=== PATIENT | male | born 1980 ===

== ENCOUNTER 2017-02-02 20:24 | Emergency (ER) | payer OTHER ==
--- NOTE | 2017-02-02 21:33 | C.PDOC ---
History Of Present Illness 36 year old male presents to the ED c/o of chest pain especially on his left side that worsens with movement that has been going on for approximately 4 days. Patient denies sweats, fever, cough, recent fall, trauma or injury. Chief Complaint (Nursing): Chest Pain History Per: Patient History/Exam Limitations: no limitations Onset/Duration Of Symptoms: Days Current Symptoms Are (Timing): Still Present Severity: Mild Quality: "Pain" Exacerbating Factors: Movement Alleviating Factors: None Recent travel outside of the [place]: No Additional History Per: Patient Past Medical History Reviewed: Historical Data, Nursing Documentation, Vital Signs Vital Signs: Last Vital Signs Temp 97.4 F L 02/02/17 23:22 Pulse 64 02/02/17 23:22 Resp 18 02/02/17 23:22 BP 116/61 02/02/17 23:22 Pulse Ox 98 02/02/17 23:22 - Medical History PMH: No Chronic Diseases Surgical History: No Surg Hx Family History: States: No Known Family Hx - Social History Hx Alcohol Use: No Hx Substance Use: No - Immunization History Hx Tetanus Toxoid Vaccination: No Hx Influenza Vaccination: No Hx Pneumococcal Vaccination: No Review Of Systems Constitutional: Negative for: Fever, Chills, Sweats Cardiovascular: Positive for: Chest Pain. Negative for: Palpitations Respiratory: Negative for: Cough, Shortness of Breath Gastrointestinal: Negative for: Nausea, Vomiting, Abdominal Pain Musculoskeletal: Negative for: Back Pain Neurological: Negative for: Headache Physical Exam - Physical Exam Appears: In Acute Distress (Mild secondary to pain) Skin: Normal Color, Warm, Dry Head: Atraumatic, Normacephalic Oral Mucosa: Moist Neck: Normal ROM, Supple Chest: Symmetrical, Tenderness (Left anterior wall ) Cardiovascular: Rhythm Regular, No Murmur Respiratory: Normal Breath Sounds, No Rales, No Rhonchi, No Wheezing Gastrointestinal/Abdominal: Soft, No Tenderness Extremity: Normal ROM, No Pedal Edema, No Calf Tenderness, No Swelling Neurological/Psych: Oriented x3, Normal Speech, Normal Cognition Gait: Steady ED Course And Treatment - Laboratory Results Result Diagrams: 02/02/17 22:05 02/02/17 22:05 ECG: Interpreted By Me, Viewed By Me ECG Rhythm: Sinus Rhythm ECG Interpretation: No Acute Changes Interpretation Of ECG: NSR, IRRRB, bordrline tracings. Rate From EC O2 Sat by Pulse Oximetry: 99 (On RA) Pulse Ox Interpretation: Normal Medical Decision Making Medical Decision Making: Impression : 36 y/o male c/o CP for the past 4 days. Plan: * EKG ordered * Blood work ordered * Toradol 30 mg IVP given * CXR ordered Disposition Counseled Patient/Family Regarding: Diagnosis - Disposition Referrals: [facility] [Outside] Disposition Time: 00:02 Condition: GOOD Prescriptions: Naproxen 375 mg PO TIDPC #20 tablet Instructions: Chest Wall Pain (ED) Forms: [employer] (Citizen Of [place]) - POA Present On Arrival: None - Clinical Impression Clinical Impression: Chest wall pain - Scribe Statement The provider has reviewed the documentation as recorded by the Scribe Az Shipley All medical record entries made by the Scribe were at my direction and personally dictated by me. I have reviewed the chart and agree that the record accurately reflects my personal performance of the history, physical exam, medical decision making, and the department course for this patient. I have also personally directed, reviewed, and agree with the discharge instructions and disposition.
[2017-02-02 22:09] LABS: BASO # 0.1 K/uL (0.0-0.2); BASO % 0.5 % (0.0-2.0); EOS # 0.3 K/uL (0.0-0.7); EOS % 2.3 % (0.0-4.0); HEMATOCRIT 45.3 % (35.0-51.0); LYMPH # 2.8 K/uL (1.0-4.3); LYMPH % 19.6 % (20.0-40.0); MEAN CELL VOLUME 84.6 fL (80.0-94.0); MEAN CORPUSCULAR HEMOGLOBIN 28.4 pg (27.0-31.0); MEAN CORPUSCULAR HGB CONC 33.6 g/dL (33.0-37.0); MONO # 1.2 K/uL (0.0-0.8); MONO % 8.3 % (0.0-10.0); NRBC % 0.1 % (0.0-2.0); RED CELL DISTRIBUTION WIDTH 13.5 % (11.5-14.5); WHITE BLOOD COUNT 14.3 K/uL (4.8-10.8)
[2017-02-02 22:32] LABS: ALB/GLOB RATIO 1.7 (1.0-2.1); ALKALINE PHOSPHATASE 58 U/L (38-126); ALT/SGPT 42 U/L (21-72); AST/SGOT 33 U/L (17-59); BILIRUBIN,TOTAL 1.5 mg/dL (0.2-1.3); BLOOD UREA NITROGEN 18 mg/dL (9-20); CALCIUM 8.4 mg/dl (8.6-10.4); CARBON DIOXIDE 29 mmol/L (22-30); CHLORIDE 99 mmol/L (98-107); GFR AFRICAN-AMERICAN > 60; GLUCOSE,RANDOM 80 mg/dL (75-110); POTASSIUM 3.7 mmol/L (3.6-5.2); SODIUM 136 mmol/L (132-148); TOTAL PROTEIN 7.3 g/dL (6.3-8.3)
[2017-02-02 23:25] VITALS: BP 116/61; PULSE 64; RESP 18; TEMP 97.4
[2017-02-03 00:06] VITALS: O2SAT 99
--- NOTE | 2017-02-03 08:30 | RAD ---
HISTORY: chest pain COMPARISON: No prior. TECHNIQUE: Chest PA and lateral FINDINGS: LUNGS: No focal infiltrate or effusion. Mild bilateral hilar prominence. PLEURA: No significant pleural effusion identified. No pneumothorax apparent. CARDIOVASCULAR: Normal. OSSEOUS STRUCTURES: No significant abnormalities. VISUALIZED UPPER ABDOMEN: Normal. OTHER FINDINGS: None. IMPRESSION: No active disease.
--- NOTE | 2017-02-03 22:11 | CARD ---
APPROVED REPORT EKG Measurement Heart [id number] VA 140P37 [id number] <Conclusion> Normal sinus rhythm Incomplete right bundle branch block Borderline ECG
== END 2017-02-03 00:12 | disposition home or self-care (01) ==
LOC: C.ER 20:24
DX: R07.89 Other chest pain (principal)
CPT/HCPCS: 71020; 80053; 84484; 85025; 85378; 93005; 96374; 99285; J1885

== ENCOUNTER 2017-09-20 23:38 | Emergency (ER) | payer SELFPAY ==
[2017-09-20 23:46] VITALS: O2SAT 99
--- NOTE | 2017-09-21 00:50 | C.PDOC ---
History Of Present Illness patient presents with burning sensation in his mid epigastic area radiating into his chest. worse after food. No f/c/n/v/. No chest pain. Time Seen by Provider: 09/21/17 00:49 Chief Complaint (Nursing): Abdominal Pain History Per: Patient History/Exam Limitations: no limitations Onset/Duration Of Symptoms: Days Current Symptoms Are (Timing): Still Present Context: Food Severity: Moderate Pain Scale Rating Of: 4 Location Of Pain/Discomfort: Epigastric Radiation Of Pain To:: None Quality Of Discomfort: Burning Associated Symptoms: denies: Fever, Chills, Nausea, Vomiting Exacerbating Factors: Food Alleviating Factors: None Last Bowel Movement: Yesterday Past Medical History Reviewed: Historical Data, Nursing Documentation, Vital Signs Vital Signs: Last Vital Signs Temp 97.9 F 09/21/17 04:57 Pulse 55 L 09/21/17 04:57 Resp 16 09/21/17 04:57 BP 116/68 09/21/17 04:57 Pulse Ox 99 09/21/17 04:57 Family History: States: No Known Family Hx - Social History Hx Alcohol Use: No Hx Substance Use: No - Immunization History Hx Tetanus Toxoid Vaccination: No Hx Influenza Vaccination: No Hx Pneumococcal Vaccination: No Review Of Systems Constitutional: Negative for: Fever, Chills Eyes: Negative for: Vision Change ENT: Negative for: Throat Pain Cardiovascular: Negative for: Chest Pain Respiratory: Negative for: Shortness of Breath Gastrointestinal: Positive for: Abdominal Pain. Negative for: Nausea, Vomiting Musculoskeletal: Negative for: Back Pain Skin: Negative for: Rash Neurological: Negative for: Weakness Psych: Negative for: Anxiety Physical Exam - Physical Exam Appears: Non-toxic, No Acute Distress Skin: Warm, Dry Oral Mucosa: Moist Neck: Supple Chest: Symmetrical Cardiovascular: Rhythm Regular Respiratory: No Rales, No Rhonchi, No Wheezing Gastrointestinal/Abdominal: Soft, Tenderness (mid epigastric), No Distention, No Guarding Male Genital: Normal Inspection Extremity: Normal ROM Neurological/Psych: Oriented x3 Gait: Steady ED Course And Treatment - Laboratory Results Result Diagrams: 09/21/17 01:27 09/21/17 01:27 ECG: Interpreted By Me, Viewed By Me ECG Rhythm: Sinus Rhythm (55), Nonspecific Changes O2 Sat by Pulse Oximetry: 99 Pulse Ox Interpretation: Normal Disposition Counseled Patient/Family Regarding: Studies Performed, Diagnosis - Disposition Referrals: Shantel Dubose MD [Primary Care Provider] - Disposition: HOME/ ROUTINE Disposition Time: 00:49 Condition: FAIR Additional Instructions: Please return if symptoms recur Prescriptions: Azithromycin [Zithromax Tri-Truman] 500 mg PO DAILY #3 tablet Pantoprazole Sodium [Protonix] 20 mg PO DAILY #15 ect Instructions: Acid Reflux (GERD), Adolescent (DC), Pneumonia, Adult (DC) Forms: [employer] (Frisian) - Clinical Impression Clinical Impression: GERD (gastroesophageal reflux disease), Pneumonia
[2017-09-21] MEDS ORDERED: Sodium Chloride 0.9% 1,000 ML IV ONE (01:01)
[2017-09-21] MEDS ORDERED: Sodium Chloride 0.9% 1,000 ML ONE (01:25)
[2017-09-21 01:30] LABS: BASO # 0.1 K/uL (0.0-0.2); BASO % 1.1 % (0.0-2.0); EOS # 0.3 K/uL (0.0-0.7); EOS % 2.8 % (0.0-4.0); HEMOGLOBIN 14.4 g/dL (12.0-18.0); LYMPH # 3.3 K/uL (1.0-4.3); LYMPH % 27.1 % (20.0-40.0); MEAN CELL VOLUME 83.5 fL (80.0-94.0); MEAN CORPUSCULAR HEMOGLOBIN 27.9 pg (27.0-31.0); MEAN CORPUSCULAR HGB CONC 33.4 g/dL (33.0-37.0); MEAN PLATELET VOLUME 9.3 fL (7.2-11.7); MONO % 8.7 % (0.0-10.0); NEUT # 7.3 K/uL (1.8-7.0); NEUT % 60.3 % (50.0-75.0); RBC 5.18 Mil/uL (4.40-5.90); RED CELL DISTRIBUTION WIDTH 13.8 % (11.5-14.5); WHITE BLOOD COUNT 12.1 K/uL (4.8-10.8)
[2017-09-21 01:44] LABS: ALB/GLOB RATIO 1.5 (1.0-2.1); ALBUMIN 4.3 g/dL (3.5-5.0); ALT/SGPT 30 U/L (21-72); AST/SGOT 20 U/L (17-59); BLOOD UREA NITROGEN 15 mg/dL (9-20); CALCIUM 8.2 mg/dl (8.6-10.4); GFR AFRICAN-AMERICAN > 60; GFR NON-AFRICAN AMERICAN > 60; LIPASE 60 U/L (23-300); SPERM URINE RARE /hpf; SQUAMOUS EPITHIAL < 1 /hpf (0-5); URINE BACTERIA OCC (<OCC); URINE BILIRUBIN NEGATIVE (NEGATIVE); URINE BLOOD NEGATIVE (NEGATIVE); URINE CLARITY Clear (Clear); URINE COLOR Yellow (YELLOW); URINE GLUCOSE (UA) NORMAL (Normal); URINE LEUKOCYTE ESTERASE NEG Leu/uL (Negative); URINE PROTEIN NEGATIVE (NEGATIVE); URINE UROBILINOGEN NORMAL mg/dL (0.2-1.0)
[2017-09-21] MEDS ORDERED: Iodixanol 320 mg/ml 150 ml Bottle IV ONE (02:39)
[2017-09-21 04:58] VITALS: RESP 16
[2017-09-21] MEDS ORDERED: Piperacillin/Tazobact 3.375 gm 100 ML IVPB STA (05:03)
[2017-09-21] MEDS ORDERED: Piperacillin/Tazobact 3.375 gm 100 ML IVPB ONE (05:18)
[2017-09-21 06:08] VITALS: BP 111/65; PULSE 56; TEMP 97.8
--- NOTE | 2017-09-21 11:20 | CT ---
PROCEDURE: CT Abdomen and Pelvis with contrast HISTORY: abd pain, hx of gastritis COMPARISON: None. TECHNIQUE: Contrast dose: 100 mL Visipaque 320 Radiation dose: Total exam DLP = 330.3 mGy-cm. This CT exam was performed using one or more of the following dose reduction techniques: Automated exposure control, adjustment of the mA and/or kV according to patient size, and/or use of iterative reconstruction technique. FINDINGS: LOWER THORAX: Left lower lobe infiltrate. Small left pleural effusion. LIVER: Unremarkable. No gross lesion or ductal dilatation. GALLBLADDER AND BILE DUCTS: Distended gallbladder with mild gallbladder wall edema. PANCREAS: Unremarkable. No gross lesion or ductal dilatation. SPLEEN: Unremarkable. ADRENALS: Unremarkable. No mass. KIDNEYS AND URETERS: Unremarkable. No hydronephrosis. No solid mass. VASCULATURE: Unremarkable. No aortic aneurysm. BOWEL: Retained colonic stool. No obstruction. No gross mural thickening. APPENDIX: Normal appendix. PERITONEUM: Small fat containing umbilical hernia. No free fluid. No free air. LYMPH NODES: Unremarkable. No enlarged lymph nodes. BLADDER: Unremarkable. REPRODUCTIVE: Unremarkable. BONES: No acute fracture. OTHER FINDINGS: None. IMPRESSION: Left lower lobe infiltrate with small parapneumonic effusion.
--- NOTE | 2017-09-22 12:56 | CARD ---
APPROVED REPORT EKG Measurement Heart [id number] MI 134P5 [id number] <Conclusion> Sinus bradycardia Otherwise normal ECG
== END 2017-09-21 06:10 | disposition home or self-care (01) ==
LOC: C.ER 23:38 → SUPCPDRO 23:38 → C.ER 09-21 06:10
DX: K21.9 Gastro-esophageal reflux disease without esophagitis (principal); J18.9 Pneumonia, unspecified organism
CPT/HCPCS: 74177; 80053; 81001; 83690; 85025; 93005; 96361; 96365; 96375; 99285; C9113; J1885; J2543; J7030; Q9967

== ENCOUNTER 2017-09-23 20:49 | Emergency (ER) | payer SELFPAY ==
[2017-09-23 20:57] VITALS: O2SAT 99
[2017-09-23] MEDS ORDERED: Sodium Chloride 0.9% 1,000 ML IV ONE (21:19)
[2017-09-23 21:49] LABS: BASO # 0.1 K/uL (0.0-0.2); BASO % 0.9 % (0.0-2.0); EOS # 0.2 K/uL (0.0-0.7); EOS % 1.5 % (0.0-4.0); HEMOGLOBIN 14.3 g/dL (12.0-18.0); LYMPH # 2.6 K/uL (1.0-4.3); MEAN CELL VOLUME 83.2 fL (80.0-94.0); MEAN CORPUSCULAR HEMOGLOBIN 28.5 pg (27.0-31.0); MEAN CORPUSCULAR HGB CONC 34.3 g/dL (33.0-37.0); MEAN PLATELET VOLUME 9.1 fL (7.2-11.7); MONO % 7.3 % (0.0-10.0); NEUT # 9.2 K/uL (1.8-7.0); NEUT % 70.3 % (50.0-75.0); RBC 5.02 Mil/uL (4.40-5.90); RED CELL DISTRIBUTION WIDTH 13.6 % (11.5-14.5); WHITE BLOOD COUNT 13.1 K/uL (4.8-10.8)
[2017-09-23] MEDS ORDERED: Sodium Chloride 0.9% 1,000 ML ONE (21:50)
[2017-09-23 22:01] LABS: ALB/GLOB RATIO 1.6 (1.0-2.1); ALBUMIN 4.2 g/dL (3.5-5.0); ALT/SGPT 31 U/L (21-72); AST/SGOT 21 U/L (17-59); BLOOD UREA NITROGEN 14 mg/dL (9-20); CALCIUM 8.2 mg/dl (8.6-10.4); GFR AFRICAN-AMERICAN > 60; GFR NON-AFRICAN AMERICAN > 60
--- NOTE | 2017-09-23 22:47 | C.PDOC ---
History Of Present Illness 36 year old male presents to the ED c/o pain to her bilateral parasternal areas and epigastric tenderness. Patient was evaluated on 09/[address] scan abd which showed left lower lobe pneumonia. Patient reports he was not instructed to take NSAIDs for pain, went to work today. 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 Patient states pain worsens with coughing and sneezing. Time Seen by Provider: 09/23/17 21:00 Chief Complaint (Nursing): Abdominal Pain History Per: Patient History/Exam Limitations: no limitations Onset/Duration Of Symptoms: Days Current Symptoms Are (Timing): Still Present Location Of Pain/Discomfort: Diffuse Radiation Of Pain To:: Chest Quality Of Discomfort: "Pain" Exacerbating Factors: None Alleviating Factors: None Recent travel outside of the [place]: No Additional History Per: Patient Past Medical History Reviewed: Historical Data, Nursing Documentation, Vital Signs Vital Signs: Last Vital Signs Temp 98.6 F 09/23/17 23:18 Pulse 60 09/23/17 23:18 Resp 16 09/23/17 23:18 BP 143/76 09/23/17 23:18 Pulse Ox 99 09/24/17 01:00 - Medical History PMH: No Chronic Diseases Surgical History: No Surg Hx Family History: States: No Known Family Hx - Social History Hx Tobacco Use: No Hx Alcohol Use: No Hx Substance Use: No - Immunization History Hx Tetanus Toxoid Vaccination: No Hx Influenza Vaccination: No Hx Pneumococcal Vaccination: No Review Of Systems Constitutional: Negative for: Fever, Chills Cardiovascular: Positive for: Chest Pain. Negative for: Palpitations Respiratory: Negative for: Cough, Shortness of Breath Gastrointestinal: Positive for: Abdominal Pain. Negative for: Nausea, Vomiting Musculoskeletal: Negative for: Back Pain Physical Exam - Physical Exam Appears: Non-toxic, No Acute Distress Skin: Normal Color, Warm, Dry Head: Atraumatic, Normacephalic Eye(s): bilateral: Normal Inspection Oral Mucosa: Moist Neck: Normal ROM, Supple Chest: Symmetrical, Tenderness (B/L parasternal) Cardiovascular: Rhythm Regular Respiratory: Normal Breath Sounds, No Rales, No Rhonchi, No Wheezing Gastrointestinal/Abdominal: Soft, No Tenderness, No Guarding, No Rebound Extremity: Normal ROM, No Tenderness, No Swelling Neurological/Psych: Oriented x3, Normal Speech Gait: Steady ED Course And Treatment - Laboratory Results Result Diagrams: 09/23/17 21:46 09/23/17 21:46 O2 Sat by Pulse Oximetry: 99 (ON RA) Pulse Ox Interpretation: Normal Medical Decision Making Medical Decision Making: PNA: mild persistent LLL PNA (dx 09/20/17) resolving nicely- clear breath sounds b/l no cough tomorrow 09/24 should be last dose of Azithromycin PO Costochondritis: digitally reproducable b/l parasternal discomfort improved with NAIDS and ice therapy educated. Epigastric discomfort Seems more xyphoid and NOT GB though called back for elective GB US, not acute issue today may f/u as opt. Disposition Doctor Will See Patient In The: Office Counseled Patient/Family Regarding: Studies Performed, Diagnosis - Disposition Referrals: [employer] [facility] [employer] [facility] [Outside] [facility] Disposition: HOME/ ROUTINE Disposition Time: 23:00 Condition: GOOD Additional Instructions: Pneumonia: Sigue Azithromycina 250 mg diario Manana 09/24 debe ser el ultimo nadja de los antibioticos Ud tiene que descansar gracia semana mas- para sanar mejor Costochondritis: Dolor del pared del pecho bolsa de hielo 1/2 hora por hora, nada caliente Ibuprofeno/Advil 400-600 mg cada 6 horas kathleen necessario para dolor Daniel gracia semana no levanta nada pesada por gracia semana Vesicula: Puede presentar ELETIVAMENTE en 2-3 semanas para hacer examen de ultrasonido Sigue en la [facility] (gratis) [place] para hacer yvette. Instructions: Pneumonia in Adults, Costochondritis Forms: [facility] [employer] (German), Work Excuse Print Language: JAPANESE - Clinical Impression Clinical Impression: Chest wall pain, Pneumonia - Scribe Statement The provider has reviewed the documentation as recorded by the Scribe Az Shipley All medical record entries made by the Scribe were at my direction and personally dictated by me. I have reviewed the chart and agree that the record accurately reflects my personal performance of the history, physical exam, medical decision making, and the department course for this patient. I have also personally directed, reviewed, and agree with the discharge instructions and disposition.
[2017-09-23 23:19] VITALS: BP 143/76; PULSE 60; RESP 16; TEMP 98.6
--- NOTE | 2017-09-24 08:29 | RAD ---
PROCEDURE: Radiographs of the chest and abdomen (obstructive series) HISTORY: Epigastric and chest pain COMPARISON: Comparison chest dated 02/02/2017 theNo prior. TECHNIQUE: AP radiograph of the chest, with upright and supine radiographs of the abdomen. FINDINGS: CHEST: Lungs: Patchy left lower lobe infiltrate with blunting left CP angle likely due to small residual effusion as well. . . Cardiovascular: Normal size heart. No pulmonary vascular congestion. Pleura: No pleural fluid. No pneumothorax. Other findings: None. ABDOMEN AND PELVIS: Bowel: Unremarkable bowel gas pattern. No evidence of mechanical obstruction. Free air: None. Bones: Small bone island within the left acetabulum unchanged. . There is very mild levoscoliosis centered at the lower thoracic region Other findings: None. IMPRESSION: Left lower lobe infiltrate and small left effusion.
--- NOTE | 2017-09-26 16:00 | CARD ---
APPROVED REPORT EKG Measurement Heart [id number] MA 126P21 [id number] <Conclusion> Sinus bradycardia Otherwise normal ECG
== END 2017-09-23 23:19 | disposition home or self-care (01) ==
LOC: C.ER 20:49
DX: J18.9 Pneumonia, unspecified organism (principal); R07.89 Other chest pain
CPT/HCPCS: 74022; 80053; 84484; 85025; 93005; 96361; 96374; 99284; J1885; J7030

== ENCOUNTER 2017-10-01 06:33 | Inpatient (IN) | payer MEDICAID ==
--- NOTE | 2017-10-01 07:27 | C.PDOC ---
History Of Present Illness 36 y/o male presents to ed with ruq and epigastric pain since last night that started after eating a liz. no associated fever, chills, nausea, vomiting or diarrhea. pt took advil with no relief. pt has been seen in ed 2 time recents for ab pain, now taking protonix, and finished a course of zithromax for a left lower lobe infiltrate. pt denies cp and sob. Time Seen by Provider: 10/01/17 07:00 Chief Complaint (Nursing): Abdominal Pain History Per: Patient History/Exam Limitations: no limitations Onset/Duration Of Symptoms: Days (1) Current Symptoms Are (Timing): Still Present Context: Food Severity: Moderate Location Of Pain/Discomfort: RUQ, Epigastric Radiation Of Pain To:: None Quality Of Discomfort: "Pain" Associated Symptoms: denies: Fever, Chills, Nausea, Vomiting, Diarrhea, Chest Pain, Urinary Symptoms Alleviating Factors: None Past Medical History Reviewed: Historical Data, Nursing Documentation, Vital Signs Vital Signs: Last Vital Signs Temp 99 F 10/01/17 09:01 Pulse 63 10/01/17 06:41 Resp 16 10/01/17 06:41 BP 152/80 H 10/01/17 06:41 Pulse Ox 99 10/01/17 08:47 - Medical History PMH: Pneumonia Surgical History: No Surg Hx Family History: States: Unknown Family Hx - Social History Hx Tobacco Use: No Hx Alcohol Use: No Hx Substance Use: No - Immunization History Hx Tetanus Toxoid Vaccination: No Hx Influenza Vaccination: No Hx Pneumococcal Vaccination: No Review Of Systems Constitutional: Negative for: Fever, Chills Cardiovascular: Negative for: Chest Pain Respiratory: Negative for: Cough, Shortness of Breath Gastrointestinal: Positive for: Abdominal Pain (ruq and epigadtric area). Negative for: Nausea, Vomiting Genitourinary: Negative for: Dysuria, Frequency Skin: Negative for: Rash Neurological: Negative for: Weakness, Numbness Physical Exam - Physical Exam Appears: Non-toxic, No Acute Distress Skin: Warm, Dry Head: Atraumatic, Normacephalic Eye(s): bilateral: Normal Inspection Neck: Supple Respiratory: No Decreased Breath Sounds, No Wheezing Gastrointestinal/Abdominal: Bowel Sounds, Soft, Tenderness (epigastric and right upper quadrant), No Distention, No Guarding, No Rebound Extremity: Normal ROM, No Tenderness, No Swelling Neurological/Psych: Oriented x3, Normal Speech, Normal Cognition ED Course And Treatment - Laboratory Results Result Diagrams: 10/01/17 07:48 10/01/17 07:48 O2 Sat by Pulse Oximetry: 99 Medical Decision Making Medical Decision Making: pt with repeat ruq/epigastric pain; per ct done early september, recommended for pt to get ruq sono; labs, pepcid, sono ordered. 0847 surg resident made aware Disposition Discussed With DrChandler: Christina Babb Doctor Will See Patient In The: Hospital - Disposition Disposition: HOSPITALIZED Disposition Time: 10:53 Condition: STABLE Forms: [facility] (British) - Clinical Impression Clinical Impression: Pneumonia, Cholecystitis
[2017-10-01 07:58] LABS: BASO # 0.1 K/uL (0.0-0.2); BASO % 0.3 % (0.0-2.0); EOS % 0.1 % (0.0-4.0); HEMOGLOBIN 14.8 g/dL (12.0-18.0); LYMPH # 0.8 K/uL (1.0-4.3); LYMPH % 3.7 % (20.0-40.0); MEAN CELL VOLUME 83.4 fL (80.0-94.0); MEAN CORPUSCULAR HEMOGLOBIN 28.3 pg (27.0-31.0); MEAN PLATELET VOLUME 9.6 fL (7.2-11.7); MONO # 0.8 K/uL (0.0-0.8); MONO % 3.6 % (0.0-10.0); NEUT # 19.1 K/uL (1.8-7.0); NEUT % 92.3 % (50.0-75.0); NRBC % 0.1 % (0.0-2.0); PLATELET COUNT 273 K/uL (130-400); RBC 5.23 Mil/uL (4.40-5.90); RED CELL DISTRIBUTION WIDTH 13.5 % (11.5-14.5)
[2017-10-01 08:01] LABS: WHITE BLOOD COUNT 20.7 K/uL (4.8-10.8)
[2017-10-01 08:15] LABS: ALB/GLOB RATIO 1.5 (1.0-2.1); ALBUMIN 4.9 g/dL (3.5-5.0); ALT/SGPT 31 U/L (21-72); AST/SGOT 18 U/L (17-59); BLOOD UREA NITROGEN 12 mg/dL (9-20); CALCIUM 9.2 mg/dl (8.6-10.4); GFR AFRICAN-AMERICAN > 60; GFR NON-AFRICAN AMERICAN > 60; LIPASE 25 U/L (23-300)
[2017-10-01] MEDS ORDERED: cefOXitin IV 2 gm in Dextrose 2 GM/50 ML BAG IVPB ONE (08:20)
[2017-10-01 08:28] LABS: ANISOCYTOSIS SLIGHT; BASOPHIL 1 % (0-2); LARGE PLATELETS PRESENT; LYMPHOCYTE 4 % (20-40); MONOCYTE 3 % (0-10); NEUTROPHIL 92 % (50-75); PLATELET ESTIMATE NORMAL (NORMAL); TOTAL CELLS COUNTED 100; TOXIC GRANULATION PRESENT
[2017-10-01] MEDS ORDERED: Sodium Chloride 0.9% 1,000 ML IV SCH (09:00)
--- NOTE | 2017-10-01 10:47 | US ---
Right upper quadrant abdominal ultrasound History: Abdominal pain. Comparison: None available. Technique: Real-time sonography was performed through the right upper quadrant of the abdomen. Findings: Liver: 17.2 centimeters in length. Normal echogenicity. Gallbladder: Cholelithiasis and sludge in the gallbladder. Calculi measure up to 1.2 centimeters. Gallbladder wall thickening up to 4 millimeters. Associated gallbladder wall edema. Negative sonographic Murray's sign. Common bile duct measures 5.7 millimeters, prominent. Pancreas not well visualized. Visualized aorta and IVC are preserved. Right kidney: 11.3 x 4.4 x 5.3 centimeters. No calculi or hydronephrosis. Impression: 1. Cholelithiasis and sludge in the gallbladder with associated gallbladder wall thickening measuring up to 4 millimeters as well as associated gallbladder wall edema. These findings may represent an underlying cholecystitis. Clinical correlation. 2. Prominent common bile duct measuring up 5.7 millimeters. Clinical correlation. 3. Pancreas not well visualized.
[2017-10-01] MEDS ORDERED: Cefepime IV 1 gm in Dextrose 1 GM/50 ML BAG IVPB STA (10:48)
[2017-10-01] MEDS ORDERED: Azithromycin 500 MG in Sodium Chloride 0.9% 250 ML IVPB STA (10:49)
--- NOTE | 2017-10-01 10:52 | RAD ---
Chest x-ray two views History: Infiltrate. Comparison: CT abdomen and pelvis dated 09/21/2017 Findings: Persistent dense rounded consolidative opacity at the left lung base concerning for underlying infiltrate. Adjacent small left pleural effusion. Post treatment interval followup is recommended to exclude underlying lesion. Clinical correlation. Heart size within normal limits. Impression: Persistent dense rounded consolidative opacity at the left lung base concerning for underlying infiltrate. Adjacent small left pleural effusion. Post treatment interval followup is recommended to exclude underlying lesion. Clinical correlation.
[2017-10-01 11:33] LABS: INR 1.2; PROTHROMBIN TIME 12.7 SECONDS (9.7-12.2)
--- NOTE | 2017-10-01 12:49 | CP.PCM.HP ---
History of Present Illness - History of Present Illness History of Present Illness: CC: stomach pains HPI: 36 year old male w/ PMHx of pneumonia (09/21/17) presented to ED with 3 week abdominal pain, increasing in intensity. Patient states it is epigastric pain radiating to subxyphoid area and lower right abdominal region. Last night (09/30/17) it increased in intensity (from 6 to 9) and despite taking 2, 200mg Advil he had no relief of pain. Patient is unable take deep breaths secondary to the pain in his abdominal region. Patient denies nausea, vomiting, leg pain/ swelling, sore throat, recent illness. Patient was recently in ED on 09/21 with similar GI symptoms (given pantoprazole 20 mg PO daily) and was found to have a distended gallbalder w/ mild gallbladder wall edema ( patient was informed of results after D/C and was informed to f/u w/ U/S) & an infiltrate on L lung on CT that was treated with azithromycin 3 days. Patient returned to ED on 09/23 for same GI complaints. XRAY obstructive series was performed confirming left lobar infiltrate. Patient denies recent travel, half-way visit. Patient denies vision changes , changes in hearing, chest pain, leg pain, calf tenderness, trouble voiding, changes in BM. Patient admits to occasional shortness of breath and chest pain. 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 absent: Chills, Fever, Increased Appetite - EENT Eyes: absent: Blurred Vision, Change in Vision, Itchy Eyes Ears: absent: Ear Pain, Abnormal Hearing, Dizziness Nose/Mouth/Throat: absent: Nasal Trauma, Sinus Pain, Sinus Pressure, Facial Pain - Cardiovascular Cardiovascular: absent: Irregular Heart Rhythm, Pain Radiating to Arm/Neck/Jaw, Leg Edema, Lightheadedness - Respiratory Respiratory: absent: Cough, Dyspnea, Wheezing - Gastrointestinal Gastrointestinal: Abdominal Pain, Early Satiety. absent: Change in Bowel Habits , Constipation, Dysphagia - Genitourinary Genitourinary: absent: Dysuria, Hematuria, Pyuria, Urinary Frequency, Urinary Hesitance - Integumentary Integumentary: absent: Acne, Non-Healing Lesions, Striae, Swelling - Neurological Neurological: absent: Abnormal Gait, Abnormal Hearing, Abnormal Movements, Behavioral Changes, Headaches, Syncope, Tremor - Endocrine Endocrine: Palpitations. absent: Polydipsia, Polyphagia, Polyuria - Hematologic/Lymphatic Hematologic: absent: Easy Bleeding, Easy Bruising Past Patient History - Infectious Disease Hx of Infectious Diseases: None - Tetanus Immunizations Tetanus Immunization: Unknown - Past Medical History & Family History Past Medical History?: Yes - Past Social History Smoking Status: Light Smoker < 10 Cigarettes Daily Chewing Tobacco Use: No Cigar Use: No Alcohol: None Drugs: Denies - PULMONARY Hx Pneumonia: Yes - PSYCHIATRIC Hx Substance Use: No - SURGICAL HISTORY Hx Surgeries: No - ANESTHESIA Hx Anesthesia: No Meds Allergies/Adverse Reactions: Allergies Allergy/AdvReac Type Severity Reaction Status Date / Time No Known Allergies Allergy Verified 09/23/17 20:58 Physical Exam - Constitutional Appears: Non-toxic, No Acute Distress - Head Exam Head Exam: ATRAUMATIC, NORMAL INSPECTION, NORMOCEPHALIC - ENT Exam ENT Exam: Mucous Membranes Moist, Normal Exam - Neck Exam Neck exam: Positive for: Normal Inspection. Negative for: Thyromegaly - Respiratory Exam Respiratory Exam: Clear to Auscultation Bilateral, NORMAL BREATHING PATTERN. absent: Rhonchi, Wheezes, Respiratory Distress - Cardiovascular Exam Cardiovascular Exam: +S1, +S2. absent: Irregular Rhythm, Systolic Murmur - GI/Abdominal Exam GI & Abdominal Exam: Guarding, Normal Bowel Sounds, Soft. absent: Diminished Bowel Sounds, Distended, Firm Additional comments: Patient had pain on palpation of abdominal region. Patient was guarding from palpation and unable to perform laguna exam/ check for hepatomegaly/ splenomegaly. - Extremities Exam Extremities exam: Positive for: normal inspection, pedal pulses present. Negative for: calf tenderness, joint swelling, pedal edema - Back Exam Back exam: NORMAL INSPECTION. absent: CVA tenderness (L), CVA tenderness (R) - Neurological Exam Neurological exam: Alert, CN II-XII Intact, Normal Gait, Oriented x3 - Psychiatric Exam Psychiatric exam: Normal Affect, Normal Mood - Skin Skin Exam: Dry, Intact, Normal Color, Warm Results - Vital Signs Recent Vital Signs: Last Vital Signs Temp 98 F 10/01/17 11:51 Pulse 76 10/01/17 11:51 Resp 18 10/01/17 11:51 BP 126/73 10/01/17 11:51 Pulse Ox 98 10/01/17 11:51 - Labs Result Diagrams: 10/01/17 07:48 10/01/17 16:44 Labs: Laboratory Results - last 24 hr 10/01/17 10/01/17 10/01/17 07:48 07:48 11:12 WBC 20.7 H D RBC 5.23 Hgb 14.8 Hct 43.6 MCV 83.4 MCH 28.3 MCHC 34.0 RDW 13.5 Plt Count 273 MPV 9.6 Neut % (Auto) 92.3 H Lymph % (Auto) 3.7 L [place] % (Auto) 3.6 Eos % (Auto) 0.1 Baso % (Auto) 0.3 Neut # (Auto) 19.1 H Lymph # (Auto) 0.8 L [place] # (Auto) 0.8 Eos # (Auto) 0.0 Baso # (Auto) 0.1 Neutrophils % (Manual) 92 H Lymphocytes % (Manual) 4 L Monocytes % (Manual) 3 Basophils % (Manual) 1 Toxic Granulation Present Platelet Estimate Normal Large Platelets Present Anisocytosis (manual) Slight PT 12.7 H INR 1.2 APTT 38 H Sodium 139 Potassium 4.6 Chloride 99 Carbon Dioxide 27 Anion Gap 17 BUN 12 Creatinine 0.7 L Est GFR ( Amer) > 60 Est GFR (Non-Af Amer) > 60 Random Glucose 130 H Calcium 9.2 Total Bilirubin 1.8 H AST 18 ALT 31 Alkaline Phosphatase 86 Total Protein 8.1 Albumin 4.9 Globulin 3.2 Albumin/Globulin Ratio 1.5 Lipase 25 Assessment & Plan - Assessment and Plan (Free Text) Assessment: 36 year old male presents to ED w/ 3 weeks of abdominal pain: 1) Acute Cholecystits 10/01: - Moxifloxacin 400 mg Q24H - Flagyl 500 mg IV Q8H - Dr. Rodriguez surgery consulted - EKG, possible RBBB, F/u ECHO - Toradol 15 mg Q6H PRN for moderate pain - Toradol 30 mg Q6H PRN for severe pain - Zofran 4mg IVQ6 H PRN 2) LLL Pneumonia (CAP) w/ failed outpatient treatment 10/01: - CT shows infiltrate, likely resolved, no clinical symptoms - F/u blood cultures from 10/01 - F/u urine cultures from 10/01 - F/u urine leginella Ag - F/u urine strep Pneumonia Ag - F/u mycoplasma IgG & IgM - F/u ID Dr. Phillips recs 3) Prophylasis 10/01: - DVT risk score of 1 (possible surgery pending) - SCDs - Protonix 40 mg IV X 1day - NS @ 102 ml/ hr - NPO for now until hear from surgery - Florastor 250mg BID
[2017-10-01] MEDS ORDERED: Moxifloxacin IV 400mg/250ml NS 400 MG/250 ML BAG IVPB SCH ×2 (13:00→15:00)
--- NOTE | 2017-10-01 14:09 | CT ---
CT chest History: Left lower lobe pneumonia. Comparison: X-ray dated 10/01/2017 Technique: Multiple contiguous axial images were performed through the chest without the use of intravenous contrast. Subsequently, sagittal and coronal reformatted images were obtained. This CT exam was performed using one or more of the following dose reduction techniques: Automated exposure control, adjustment of the mA and/or kV according to patient size, and/or use of iterative reconstruction technique. Findings: Right lung: Apical pleural thickening. Mild right basilar atelectasis. Left lung: Apical pleural thickening. Mild consolidative changes within the lingula. Dense focal consolidative opacification seen within the left lower lobe measuring 7.5 x 2.3 centimeters with adjacent small left pleural effusion. This may represent underlying infiltrate. Posttreatment interval followup would be helpful to ensure resolution and exclude underlying lesion. Trachea thru central airways are patent. Bilateral gynecomastia. No significant axillary adenopathy. Heterogeneity of the thyroid. Prevascular lymph node measures 1.5 centimeters. Precarinal lymph node measures 1.3 centimeters. Distended gallbladder with associated wall thickening. Please see separate report for evaluation of the gallbladder ultrasound. These findings may be concerning for possible cholecystitis. Clinical correlation. Impression: 1. Dense focal consolidative opacification seen within the left lower lobe measuring 7.5 x 2.3 centimeters with adjacent small left pleural effusion. This may represent underlying infiltrate. Posttreatment interval followup would be helpful to ensure resolution and exclude underlying lesion. Mild consolidative changes within the lingula. 2. Prevascular lymph node measures 1.5 centimeters. Precarinal lymph node measures 1.3 centimeters. 3. Distended gallbladder with associated wall thickening. Please see separate report for evaluation of the gallbladder ultrasound. These findings may be concerning for possible cholecystitis. Clinical correlation.
[2017-10-01] MEDS: metroNIDAZOLE IV 500 mg/100 ml 500 MG/100 ML BAG IVPB SCH ×2 (14:37→21:19)
[2017-10-01] MEDS: Sodium Chloride 0.9% 1,000 ML IV SCH ×2 (14:37→23:01)
[2017-10-01 17:00] LABS: URINE BILIRUBIN NEGATIVE (NEGATIVE); URINE BLOOD 1+ (NEGATIVE); URINE CLARITY Clear (Clear); URINE COLOR Yellow (YELLOW); URINE GLUCOSE (UA) NORMAL (Normal); URINE LEUKOCYTE ESTERASE NEG Leu/uL (Negative); URINE PROTEIN NEGATIVE (NEGATIVE); URINE UROBILINOGEN NORMAL mg/dL (0.2-1.0)
[2017-10-01 17:01] LABS: ALB/GLOB RATIO 1.5 (1.0-2.1); ALBUMIN 4.2 g/dL (3.5-5.0); ALT/SGPT 25 U/L (21-72); AST/SGOT 15 U/L (17-59); BLOOD UREA NITROGEN 7 mg/dL (9-20); CALCIUM 8.9 mg/dl (8.6-10.4); GFR AFRICAN-AMERICAN > 60; GFR NON-AFRICAN AMERICAN > 60
[2017-10-01 17:39] LABS: LEGIONELLA AG URINE NEGATIVE (NEGATIVE)
--- NOTE | 2017-10-01 18:08 | CP.PCM.CON ---
<Tam Bey - Last Filed: 10/01/17 18:02> History of Present Illness - History of Present Illness History of Present Illness: 36M presenting to the ED with constant, epigastric pain radiating to the right side. This pain has been ongoing, but worse the past few weeks. He was recently admitted last week for similar symptoms and discharged with pepcid and antibiotics for pneumonia. Today his symptoms have worsened and no medications are helping with the pain. He denies and fever, chills, nausea, or vomiting. PMH: none PSH: none ALL: NKDA Social: smokes 4-5cigs/day, denies alcohol or drugs Review of Systems - Constitutional Constitutional: Weakness. absent: Chills, Fever, Headache - EENT Eyes: absent: Blurred Vision, Change in Vision Nose/Mouth/Throat: absent: Nasal Congestion, Nasal Discharge - Cardiovascular Cardiovascular: absent: Chest Pain, Dyspnea - Respiratory Respiratory: absent: Cough, Dyspnea - Gastrointestinal Gastrointestinal: Abdominal Pain, Bloating. absent: Change in Bowel Habits, Change in Stool Character, Nausea, Vomiting - Genitourinary Genitourinary: absent: Dysuria, Hematuria - Musculoskeletal Musculoskeletal: absent: Abnormal Gait, Arthralgias - Integumentary Integumentary: absent: Bleeding Lesions, Changing Lesions - Neurological Neurological: absent: Abnormal Hearing, Abnormal Movements - Psychiatric Psychiatric: absent: Depression, Panic Attacks - Endocrine Endocrine: absent: Change in Body Appearance, Fatigue - Hematologic/Lymphatic Hematologic: absent: Easy Bleeding, Easy Bruising Past Patient History - Infectious Disease Hx of Infectious Diseases: None - Tetanus Immunizations Tetanus Immunization: Unknown - Past Medical History & Family History Past Medical History?: Yes - Past Social History Smoking Status: Light Smoker < 10 Cigarettes Daily Chewing Tobacco Use: No Cigar Use: No Alcohol: None Drugs: Denies - PULMONARY Hx Pneumonia: Yes - MUSCULOSKELETAL/RHEUMATOLOGICAL Hx Falls: No - PSYCHIATRIC Hx Substance Use: No - SURGICAL HISTORY Hx Surgeries: No - ANESTHESIA Hx Anesthesia: No Meds Allergies/Adverse Reactions: Allergies Allergy/AdvReac Type Severity Reaction Status Date / Time No Known Allergies Allergy Verified 09/23/17 20:58 - Medications Medications: Current Medications Metronidazole (Flagyl) 500 mg in 100 mls @ 100 mls/hr IVPB Q8H ALIZA PRN Reason: Protocol Last Admin: 10/01/17 14:37 Dose: 100 mls/hr Sodium Chloride (Sodium Chloride 0.9%) 1,000 mls @ 102 mls/hr IV .Q9H49M [facility] Last Admin: 10/01/17 14:37 Dose: 102 mls/hr Moxifloxacin HCl (Avelox Iv 400mg/250ml Ns) 400 mg in 250 mls @ 167 mls/hr IVPB Q24H ALIZA PRN Reason: Protocol Ketorolac Tromethamine (Toradol) 30 mg IVP Q6 PRN PRN Reason: Pain, severe (8-10) Last Admin: 10/01/17 14:15 Dose: 30 mg Ketorolac Tromethamine (Toradol) 15 mg IVP Q6 PRN PRN Reason: Pain, moderate (4-7) Pantoprazole Sodium (Protonix Inj) 40 mg IVP DAILY [facility] Last Admin: 10/01/17 14:38 Dose: 40 mg Saccharomyces Boulardii (Florastor) 250 mg PO BID [facility] Physical Exam - Constitutional Appears: Well, Non-toxic, No Acute Distress - Head Exam Head Exam: ATRAUMATIC, NORMAL INSPECTION, NORMOCEPHALIC - Eye Exam Eye Exam: EOMI, Normal appearance - Respiratory Exam Respiratory Exam: Clear to Auscultation Bilateral, NORMAL BREATHING PATTERN - Cardiovascular Exam Cardiovascular Exam: REGULAR RHYTHM, +S1, +S2 - GI/Abdominal Exam GI & Abdominal Exam: Normal Bowel Sounds, Soft, Tenderness. absent: Distended, Firm, Guarding - Neurological Exam Neurological exam: Alert, Oriented x3 - Psychiatric Exam Psychiatric exam: Normal Affect, Normal Mood - Skin Skin Exam: Dry, Intact, Normal Color, Warm Results - Vital Signs Recent Vital Signs: Last Vital Signs Temp 98.2 F 10/01/17 15:00 Pulse 60 10/01/17 15:00 Resp 20 10/01/17 15:00 BP 130/68 10/01/17 15:00 Pulse Ox 99 10/01/17 15:00 - Labs Result Diagrams: 10/01/17 07:48 10/01/17 16:44 Labs: Laboratory Results - last 24 hr 10/01/17 10/01/17 10/01/17 07:48 07:48 11:12 WBC 20.7 H D RBC 5.23 Hgb 14.8 Hct 43.6 MCV 83.4 MCH 28.3 MCHC 34.0 RDW 13.5 Plt Count 273 MPV 9.6 Neut % (Auto) 92.3 H Lymph % (Auto) 3.7 L [place] % (Auto) 3.6 Eos % (Auto) 0.1 Baso % (Auto) 0.3 Neut # (Auto) 19.1 H Lymph # (Auto) 0.8 L [place] # (Auto) 0.8 Eos # (Auto) 0.0 Baso # (Auto) 0.1 Neutrophils % (Manual) 92 H Lymphocytes % (Manual) 4 L Monocytes % (Manual) 3 Basophils % (Manual) 1 Toxic Granulation Present Platelet Estimate Normal Large Platelets Present Anisocytosis (manual) Slight PT 12.7 H INR 1.2 APTT 38 H Sodium 139 Potassium 4.6 Chloride 99 Carbon Dioxide 27 Anion Gap 17 BUN 12 Creatinine 0.7 L Est GFR ( Amer) > 60 Est GFR (Non-Af Amer) > 60 Random Glucose 130 H Calcium 9.2 Total Bilirubin 1.8 H AST 18 ALT 31 Alkaline Phosphatase 86 Total Protein 8.1 Albumin 4.9 Globulin 3.2 Albumin/Globulin Ratio 1.5 Lipase 25 Urine Color Urine Clarity Urine pH Ur Specific [place] Urine Protein Urine Glucose (UA) Urine Ketones Urine Blood Urine Nitrate Urine Bilirubin Urine Urobilinogen Ur Leukocyte Esterase Urine WBC (Auto) Urine RBC (Auto) Influenza Typ A,B (EIA) Ur L.pneumophila Ag 10/01/17 10/01/17 10/01/17 12:29 16:44 16:44 WBC RBC Hgb Hct MCV MCH MCHC RDW Plt Count MPV Neut % (Auto) Lymph % (Auto) [place] % (Auto) Eos % (Auto) Baso % (Auto) Neut # (Auto) Lymph # (Auto) [place] # (Auto) Eos # (Auto) Baso # (Auto) Neutrophils % (Manual) Lymphocytes % (Manual) Monocytes % (Manual) Basophils % (Manual) Toxic Granulation Platelet Estimate Large Platelets Anisocytosis (manual) PT INR APTT Sodium Potassium Chloride Carbon Dioxide Anion Gap BUN Creatinine Est GFR ( Amer) Est GFR (Non-Af Amer) Random Glucose Calcium Total Bilirubin AST ALT Alkaline Phosphatase Total Protein Albumin Globulin Albumin/Globulin Ratio Lipase Urine Color Yellow Urine Clarity Clear Urine pH 6.0 Ur Specific [place] 1.010 Urine Protein Negative Urine Glucose (UA) Normal Urine Ketones 1+ H Urine Blood 1+ H Urine Nitrate Negative Urine Bilirubin Negative Urine Urobilinogen Normal Ur Leukocyte Esterase Neg Urine WBC (Auto) 1 Urine RBC (Auto) 2 Influenza Typ A,B (EIA) Negative for flu a/b Ur L.pneumophila Ag Negative 10/01/17 16:44 WBC RBC Hgb Hct MCV MCH MCHC RDW Plt Count MPV Neut % (Auto) Lymph % (Auto) [place] % (Auto) Eos % (Auto) Baso % (Auto) Neut # (Auto) Lymph # (Auto) [place] # (Auto) Eos # (Auto) Baso # (Auto) Neutrophils % (Manual) Lymphocytes % (Manual) Monocytes % (Manual) Basophils % (Manual) Toxic Granulation Platelet Estimate Large Platelets Anisocytosis (manual) PT INR APTT Sodium 138 Potassium 4.3 Chloride 100 Carbon Dioxide 26 Anion Gap 16 BUN 7 L Creatinine 0.7 L Est GFR ( Amer) > 60 Est GFR (Non-Af Amer) > 60 Random Glucose 115 H Calcium 8.9 Total Bilirubin 2.2 H AST 15 L ALT 25 Alkaline Phosphatase 71 Total Protein 7.1 Albumin 4.2 Globulin 2.8 Albumin/Globulin Ratio 1.5 Lipase Urine Color Urine Clarity Urine pH Ur Specific [place] Urine Protein Urine Glucose (UA) Urine Ketones Urine Blood Urine Nitrate Urine Bilirubin Urine Urobilinogen Ur Leukocyte Esterase Urine WBC (Auto) Urine RBC (Auto) Influenza Typ A,B (EIA) Ur L.pneumophila Ag Assessment & Plan - Assessment and Plan (Free Text) Assessment: 36M w/ acute cholecystitis complicated by a LLL PNA Plan: Repeat Labs -will order CBC and LFTs 2/2 elevated T.Bili (1.8), if normal we will proceed to the OR tomorrow If labs abnormal, will do MRCP first c/w IV Abx c/w pain management IVF, NPO medical optimization further recs per Dr. Shon Bey PGY1 <Jayden Menendez - Last Filed: 10/01/17 23:21> Meds - Medications Medications: Current Medications Metronidazole (Flagyl) 500 mg in 100 mls @ 100 mls/hr IVPB Q8H ALIZA PRN Reason: Protocol Last Admin: 10/01/17 21:19 Dose: 100 mls/hr Sodium Chloride (Sodium Chloride 0.9%) 1,000 mls @ 102 mls/hr IV .Q9H49M [facility] Last Admin: 10/01/17 23:01 Dose: Not Given Piperacillin Sod/Tazobactam Sod (Zosyn 3.375 In Ns 100ml) 100 mls @ 200 mls/hr IVPB Q6 ALIZA PRN Reason: Protocol Ketorolac Tromethamine (Toradol) 30 mg IVP Q6 PRN PRN Reason: Pain, severe (8-10) Last Admin: 10/01/17 20:54 Dose: 30 mg Ketorolac Tromethamine (Toradol) 15 mg IVP Q6 PRN PRN Reason: Pain, moderate (4-7) Pantoprazole Sodium (Protonix Inj) 40 mg IVP DAILY [facility] Last Admin: 10/01/17 14:38 Dose: 40 mg Saccharomyces Boulardii (Florastor) 250 mg PO BID [facility] Last Admin: 10/01/17 18:20 Dose: 250 mg Results - Vital Signs Recent Vital Signs: Last Vital Signs Temp 98.2 F 10/01/17 15:00 Pulse 60 10/01/17 15:00 Resp 20 10/01/17 15:00 BP 130/68 10/01/17 15:00 Pulse Ox 99 10/01/17 15:00 - Labs Result Diagrams: 10/01/17 07:48 10/01/17 16:44 Labs: Laboratory Results - last 24 hr 10/01/17 10/01/17 10/01/17 07:48 07:48 11:12 WBC 20.7 H D RBC 5.23 Hgb 14.8 Hct 43.6 MCV 83.4 MCH 28.3 MCHC 34.0 RDW 13.5 Plt Count 273 MPV 9.6 Neut % (Auto) 92.3 H Lymph % (Auto) 3.7 L [place] % (Auto) 3.6 Eos % (Auto) 0.1 Baso % (Auto) 0.3 Neut # (Auto) 19.1 H Lymph # (Auto) 0.8 L [place] # (Auto) 0.8 Eos # (Auto) 0.0 Baso # (Auto) 0.1 Neutrophils % (Manual) 92 H Lymphocytes % (Manual) 4 L Monocytes % (Manual) 3 Basophils % (Manual) 1 Toxic Granulation Present Platelet Estimate Normal Large Platelets Present Anisocytosis (manual) Slight PT 12.7 H INR 1.2 APTT 38 H Sodium 139 Potassium 4.6 Chloride 99 Carbon Dioxide 27 Anion Gap 17 BUN 12 Creatinine 0.7 L Est GFR ( Amer) > 60 Est GFR (Non-Af Amer) > 60 Random Glucose 130 H Calcium 9.2 Total Bilirubin 1.8 H AST 18 ALT 31 Alkaline Phosphatase 86 Total Protein 8.1 Albumin 4.9 Globulin 3.2 Albumin/Globulin Ratio 1.5 Lipase 25 Urine Color Urine Clarity Urine pH Ur Specific [place] Urine Protein Urine Glucose (UA) Urine Ketones Urine Blood Urine Nitrate Urine Bilirubin Urine Urobilinogen Ur Leukocyte Esterase Urine WBC (Auto) Urine RBC (Auto) Influenza Typ A,B (EIA) Ur L.pneumophila Ag Mycoplasma pneumon IgM 10/01/17 10/01/17 10/01/17 11:32 12:29 16:44 WBC RBC Hgb Hct MCV MCH MCHC RDW Plt Count MPV Neut % (Auto) Lymph % (Auto) [place] % (Auto) Eos % (Auto) Baso % (Auto) Neut # (Auto) Lymph # (Auto) [place] # (Auto) Eos # (Auto) Baso # (Auto) Neutrophils % (Manual) Lymphocytes % (Manual) Monocytes % (Manual) Basophils % (Manual) Toxic Granulation Platelet Estimate Large Platelets Anisocytosis (manual) PT INR APTT Sodium Potassium Chloride Carbon Dioxide Anion Gap BUN Creatinine Est GFR ( Amer) Est GFR (Non-Af Amer) Random Glucose Calcium Total Bilirubin AST ALT Alkaline Phosphatase Total Protein Albumin Globulin Albumin/Globulin Ratio Lipase Urine Color Yellow Urine Clarity Clear Urine pH 6.0 Ur Specific [place] 1.010 Urine Protein Negative Urine Glucose (UA) Normal Urine Ketones 1+ H Urine Blood 1+ H Urine Nitrate Negative Urine Bilirubin Negative Urine Urobilinogen Normal Ur Leukocyte Esterase Neg Urine WBC (Auto) 1 Urine RBC (Auto) 2 Influenza Typ A,B (EIA) Negative for flu a/b Ur L.pneumophila Ag Mycoplasma pneumon IgM Negative 10/01/17 10/01/17 16:44 16:44 WBC RBC Hgb Hct MCV MCH MCHC RDW Plt Count MPV Neut % (Auto) Lymph % (Auto) [place] % (Auto) Eos % (Auto) Baso % (Auto) Neut # (Auto) Lymph # (Auto) [place] # (Auto) Eos # (Auto) Baso # (Auto) Neutrophils % (Manual) Lymphocytes % (Manual) Monocytes % (Manual) Basophils % (Manual) Toxic Granulation Platelet Estimate Large Platelets Anisocytosis (manual) PT INR APTT Sodium 138 Potassium 4.3 Chloride 100 Carbon Dioxide 26 Anion Gap 16 BUN 7 L Creatinine 0.7 L Est GFR ( Amer) > 60 Est GFR (Non-Af Amer) > 60 Random Glucose 115 H Calcium 8.9 Total Bilirubin 2.2 H AST 15 L ALT 25 Alkaline Phosphatase 71 Total Protein 7.1 Albumin 4.2 Globulin 2.8 Albumin/Globulin Ratio 1.5 Lipase Urine Color Urine Clarity Urine pH Ur Specific [place] Urine Protein Urine Glucose (UA) Urine Ketones Urine Blood Urine Nitrate Urine Bilirubin Urine Urobilinogen Ur Leukocyte Esterase Urine WBC (Auto) Urine RBC (Auto) Influenza Typ A,B (EIA) Ur L.pneumophila Ag Negative Mycoplasma pneumon IgM Attending/Attestation - Attestation I have personally seen and examined this patient.: Yes I have fully participated in the care of the patient.: Yes I have reviewed all pertinent clinical information: Yes Notes (Text): Pt was seen and examined at bedside Agree with above note and assessment Pt with LLL Pneumonia and Lower chest pain and Epigstric pain RUQ and Epigastric tenderness Labs and radiology reviewed Ass: LLL Pnueumonia, Acute Cholecystitis with Cholelithiasis, Abnormal LFTs Plan : MRCP GI consult for ERCP NPO, IVF IV Antibiotics Plan d.w pt in detail. Risk and benefit explained in detail.
[2017-10-01] MEDS: Saccharomyces Boulardi 250 mg Cap PO SCH (18:20)
[2017-10-02] MEDS: Piperacillin/Tazobact 3.375 gm 100 ML IVPB SCH ×3 (00:02→12:59)
--- NOTE | 2017-10-02 03:33 | CON ---
DATE: 10/01/2017 HISTORY OF PRESENT ILLNESS: The patient is a 36-year-old male who is a smoker. He presented because of abdominal pain. Chest CT scan without contrast revealed dense focal consolidative opacification within the left lower lobe with adjacent small left pleural effusion with near present underlying infiltrate. Mild consolidative changes in the lingula. The extended gallbladder with associated wall thickening. Gallbladder ultrasound was consistent with cholelithiasis as well as bladder calculi measuring up to 1.2 cm, gallbladder wall thickening, and associated gallbladder wall edema, negative sonographic Murray sign. The patient has been evaluated for cholecystectomy. The patient denies any retrosternal chest pain and is unaware of any prior cardiac history. SOCIAL HISTORY: The patient is a smoker. MEDICATIONS: Avelox 400 mg intravenously daily, Flagyl 500 mg intravenously every 8 hours, Protonix 40 mg intravenously daily, normal saline at 100 mL/ hr, Toradol 50 mg intravenously every 6 hours p.r.n. REVIEW OF SYSTEMS: The patient complains of nausea and epigastric comfort. The patient does have low grade fever. PHYSICAL EXAMINATION: GENERAL: The patient is young middle-aged male who does not appear to be in any distress. VITAL SIGNS: Blood pressure 126/73, heart rate 76, temperature 99 rectally, respirations 18. HEENT: Normocephalic. NECK: No JVD. CHEST: Clear. HEART: S1 and S2 regular. ABDOMEN: Soft. EXTREMITIES: No edema. LABORATORY DATA: EKG revealed sinus rhythm, RSR pattern in lead V1 . SMA-7 today is within normal limits except for glucose 115. BUN and creatinine are 7 and 0.7. Today's white count is . Hemoglobin, hematocrit, and platelet count are within normal limits. INR is 1.2. PTT is 38. ASSESSMENT: 1. Acute cholecystitis. 2. Hyperglycemia. RECOMMENDATIONS: Continue current IV Flagyl and IV Avelox as well as IV hydration. Obtain an echocardiogram. The patient can undergo cholecystectomy from a cardiac point of view. Yovany Cobian MD
[2017-10-02] MEDS: Sodium Chloride 0.9% 1,000 ML IV SCH ×3 (03:54→17:42)
[2017-10-02] MEDS: metroNIDAZOLE IV 500 mg/100 ml 500 MG/100 ML BAG IVPB SCH ×3 (05:03→20:26)
[2017-10-02 06:56] LABS: BASO # 0.1 K/uL (0.0-0.2); BASO % 0.6 % (0.0-2.0); EOS # 0.2 K/uL (0.0-0.7); HEMOGLOBIN 14.3 g/dL (12.0-18.0); LYMPH # 1.7 K/uL (1.0-4.3); LYMPH % 10.6 % (20.0-40.0); MEAN CELL VOLUME 82.8 fL (80.0-94.0); MEAN CORPUSCULAR HEMOGLOBIN 28.5 pg (27.0-31.0); MEAN CORPUSCULAR HGB CONC 34.4 g/dL (33.0-37.0); MEAN PLATELET VOLUME 9.3 fL (7.2-11.7); MONO # 1.8 K/uL (0.0-0.8); NEUT # 12.6 K/uL (1.8-7.0); NEUT % 76.8 % (50.0-75.0); RBC 5.01 Mil/uL (4.40-5.90); RED CELL DISTRIBUTION WIDTH 13.3 % (11.5-14.5); WHITE BLOOD COUNT 16.4 K/uL (4.8-10.8)
[2017-10-02 07:10] LABS: ALB/GLOB RATIO 1.2 (1.0-2.1); ALBUMIN 3.7 g/dL (3.5-5.0); ALT/SGPT 24 U/L (21-72); AST/SGOT 14 U/L (17-59); BLOOD UREA NITROGEN 9 mg/dL (9-20); CALCIUM 8.5 mg/dl (8.6-10.4); GFR AFRICAN-AMERICAN > 60; GFR NON-AFRICAN AMERICAN > 60
--- NOTE | 2017-10-02 07:37 | CP.PCM.PN ---
<Flex Burnett - Last Filed: 10/02/17 17:28> Objective - Vital Signs/Intake and Output Vital Signs (last 24 hours): Temp Pulse Resp BP Pulse Ox 98.5 F 74 20 116/66 97 10/02/17 00:00 10/02/17 00:00 10/02/17 00:00 10/02/17 00:00 10/02/17 00:00 Intake and Output: 10/02/17 10/02/17 06:59 18:59 Intake Total 1216 Balance 1216 - Medications Medications: Current Medications Metronidazole (Flagyl) 500 mg in 100 mls @ 100 mls/hr IVPB Q8H [facility] PRN Reason: Protocol Last Admin: 10/02/17 05:03 Dose: 100 mls/hr Sodium Chloride (Sodium Chloride 0.9%) 1,000 mls @ 102 mls/hr IV .Q9H49M [facility] Last Admin: 10/02/17 03:54 Dose: 102 mls/hr Piperacillin Sod/Tazobactam Sod (Zosyn 3.375 In Ns 100ml) 100 mls @ 200 mls/hr IVPB Q6 [facility] PRN Reason: Protocol Last Admin: 10/02/17 06:06 Dose: 200 mls/hr Ketorolac Tromethamine (Toradol) 30 mg IVP Q6 PRN PRN Reason: Pain, severe (8-10) Last Admin: 10/02/17 04:00 Dose: 30 mg Ketorolac Tromethamine (Toradol) 15 mg IVP Q6 PRN PRN Reason: Pain, moderate (4-7) Pantoprazole Sodium (Protonix Inj) 40 mg IVP DAILY [facility] Last Admin: 10/01/17 14:38 Dose: 40 mg Saccharomyces Boulardii (Florastor) 250 mg PO BID [facility] Last Admin: 10/01/17 18:20 Dose: 250 mg - Labs Labs: 10/02/17 06:47 10/02/17 06:47 PT 12.7 SECONDS (9.7-12.2) H 10/01/17 11:12 INR 1.2 10/01/17 11:12 APTT 38 SECONDS (21-34) H 10/01/17 11:12 <Amari Pandey - Last Filed: 10/02/17 20:00> Subjective - Date & Time of Evaluation Date of Evaluation: 10/02/17 Time of Evaluation: 12:45 - Subjective Subjective: Hospitalist Progress Note Patient was seen and examined at 12:45 PM 356 B Patient is S/P Lap Telma on 10/01/17 Currently upon FULL ROS: RUQ and Epigastric Pain is 1-2 out of 10 but states he is comfortable States he is hungry NO chest pain NO SOB/Cough NO n/v/d/c NO burning pain with urination NO dysphagia/odynophagia NO paresthesias NO new changes in visioin NO new changes in hearing NO headache Exam: General: AAOX3, NAD HEENT: NCA, EOMI, PERRLA, NO cervical/supraclavicular/submandibular lymphadenopathy, NO pharyngeal erythema/exudate, Nasal Turbinates are nonerythematous/nonedematous, Oral Mucosa is moist Cardio: NS1 and NS2, NO M/R/G Resp: CTA B/L, NO R/R/W GI: BSx4, Soft, Central Obesity, Liver and Spleen were not attempted to palpate. Tenderness to Palpation RUQ and Epigastric that is minor without guarding/rebound tenderness Ext: Pulses are strong and equal in bilateral UE and LE, NO edema noted, capillary refills is 2 seconds on all toes Neuro: CN II through XII are grossly intact 1). Acute Cholecystitis See Abdominal U/S report MRCP planned for morning of 10/03/17 therefore NPO after midnight Echocardiogram needs to be performed morning 10/03/17 and once performed notify Cardiology Dr. Cobian If no issues with MRCP and Echo then surgery team should be notified so that Lap Telma may be performed on 10/03/17 Zosyn 3.375 gm IV Q6H Metronidiazole 500 mg IV Q8H 2). Hx LLL Pneumonia See Chest CT report This was treated as outpatient. As evidence of pneumonia can persist even after effective treatment, this is NOT failure of outpatient treatment: Respiratory Exam is normal, Repeat Chest X Ray should be done in roughly 6 weeks 3). Prophylaxis Toradol 15 mg IV Q6H PRN Moderate Pain Toradol 30 mg IV Q6H PRN Severe Pain Protonix 40 mg IV 1x/day Florastor 250 mg PO 2x/day Amari Pandey D.O. For MRCP and Echo morning 10/03/17 and if ok then for Lap Telma Full Note to follow Objective - Vital Signs/Intake and Output Vital Signs (last 24 hours): Temp Pulse Resp BP Pulse Ox 98.5 F 74 20 116/66 97 10/02/17 00:00 10/02/17 00:00 10/02/17 00:00 10/02/17 00:00 10/02/17 00:00 Intake and Output: 10/02/17 10/02/17 06:59 18:59 Intake Total 1216 Balance 1216 - Medications Medications: Current Medications Metronidazole (Flagyl) 500 mg in 100 mls @ 100 mls/hr IVPB Q8H [facility] PRN Reason: Protocol Last Admin: 10/02/17 05:03 Dose: 100 mls/hr Sodium Chloride (Sodium Chloride 0.9%) 1,000 mls @ 102 mls/hr IV .Q9H49M [facility] Last Admin: 10/02/17 08:11 Dose: Not Given Piperacillin Sod/Tazobactam Sod (Zosyn 3.375 In Ns 100ml) 100 mls @ 200 mls/hr IVPB Q6 [facility] PRN Reason: Protocol Last Admin: 10/02/17 12:59 Dose: 200 mls/hr Ketorolac Tromethamine (Toradol) 30 mg IVP Q6 PRN PRN Reason: Pain, severe (8-10) Last Admin: 10/02/17 04:00 Dose: 30 mg Ketorolac Tromethamine (Toradol) 15 mg IVP Q6 PRN PRN Reason: Pain, moderate (4-7) Pantoprazole Sodium (Protonix Inj) 40 mg IVP DAILY [facility] Last Admin: 10/02/17 09:56 Dose: 40 mg Saccharomyces Boulardii (Florastor) 250 mg PO BID [facility] Last Admin: 10/02/17 09:56 Dose: 250 mg - Labs Labs: 10/02/17 06:47 10/02/17 06:47 PT 12.7 SECONDS (9.7-12.2) H 10/01/17 11:12 INR 1.2 10/01/17 11:12 APTT 38 SECONDS (21-34) H 10/01/17 11:12
--- NOTE | 2017-10-02 08:34 | CP.PCM.CON ---
History of Present Illness - History of Present Illness History of Present Illness: Asked by hospitalist team for a GI consultation on this patient. 36 year old male without significant medical history who presents to hospital with complaint of progressive abdominal pain. He describes sharp epigastric pain, 7/ 10 intensity radiating to RUQ which has gotten progressively worse over the past one week. He has associated nausea but denies vomiting, fever/chills, diarrhea, weight loss, or change in bowel habits. He came to hospital ER previously earlier this month with similar complaints and was treated conservatively along with therapy for pneumonia. Since arrival to hospital his pain has slightly improved. No prior endoscopic evaluation. Social history: smokes 5 cigarettes daily, no ETOH use Family history: reviewed, denies history of GI malignancies Review of Systems - Review of Systems Review of Systems: - All other comprehensive 12 point review of systems performed, negative - Cardiovascular Cardiovascular: absent: Acrocyanosis, Chest Pain, Chest Pain at Rest, Chest Pain with Activity, Claudication, Diaphoresis, Dyspnea, Dyspnea on Exertion, Edema, Irregular Heart Rhythm, Pain Radiating to Arm/Neck/Jaw, Leg Edema, Leg Ulcers, Lightheadedness, Orthopnea, Palpitations, Paroxysmal Nocturnal Dyspnea, Pedal Edema, Radiating Pain, Rapid Heart Rate, Slow Heart Rate, Syncope, Other - Respiratory Respiratory: absent: Cough, Dyspnea, Hemoptysis, Dyspnea on Exertion, Wheezing, Snoring, Stridor, Pain on Inspiration, Chest Congestion, Excessive Mucous Production, Change in Mucous Color, Pain with Coughing, Other - Gastrointestinal Gastrointestinal: Abdominal Pain - Musculoskeletal Musculoskeletal: absent: Abnormal Gait, Arthralgias, Atrophy, Back Pain, Deformity, Joint Swelling, Limited Range of Motion, Loss of Height, Muscle Cramps, Muscle Weakness, Myalgias, Neck Pain, Numbness, Radiating Pain into Limb , Stiffness, Tingling, Other - Neurological Neurological: absent: Abnormal Gait, Abnormal Hearing, Abnormal Movements, Abnormal Speech, Behavioral Changes, Burning Sensations, Confusion, Convulsions , Disequilibrium, Dizziness, Numbness, Focal Weakness, Frequent Falls, Headaches , Lack of Coordination, Loss of Vision, Memory Loss, Paresthesias, Radicular Pain, Restless Legs, Sensory Deficit, Syncope, Tingling, Tremor, Vertigo, Weakness, Other Visual Disturbances, Other Past Patient History - Infectious Disease Hx of Infectious Diseases: None - Tetanus Immunizations Tetanus Immunization: Unknown - Past Medical History & Family History Past Medical History?: Yes - Past Social History Smoking Status: Light Smoker < 10 Cigarettes Daily Chewing Tobacco Use: No Cigar Use: No Alcohol: None Drugs: Denies - PULMONARY Hx Pneumonia: Yes - MUSCULOSKELETAL/RHEUMATOLOGICAL Hx Falls: No - PSYCHIATRIC Hx Substance Use: No - SURGICAL HISTORY Hx Surgeries: No - ANESTHESIA Hx Anesthesia: No Meds Allergies/Adverse Reactions: Allergies Allergy/AdvReac Type Severity Reaction Status Date / Time No Known Allergies Allergy Verified 09/23/17 20:58 - Medications Medications: Current Medications Metronidazole (Flagyl) 500 mg in 100 mls @ 100 mls/hr IVPB Q8H [facility] PRN Reason: Protocol Last Admin: 10/02/17 05:03 Dose: 100 mls/hr Sodium Chloride (Sodium Chloride 0.9%) 1,000 mls @ 102 mls/hr IV .Q9H49M [facility] Last Admin: 10/02/17 08:11 Dose: Not Given Piperacillin Sod/Tazobactam Sod (Zosyn 3.375 In Ns 100ml) 100 mls @ 200 mls/hr IVPB Q6 [facility] PRN Reason: Protocol Last Admin: 10/02/17 06:06 Dose: 200 mls/hr Ketorolac Tromethamine (Toradol) 30 mg IVP Q6 PRN PRN Reason: Pain, severe (8-10) Last Admin: 10/02/17 04:00 Dose: 30 mg Ketorolac Tromethamine (Toradol) 15 mg IVP Q6 PRN PRN Reason: Pain, moderate (4-7) Pantoprazole Sodium (Protonix Inj) 40 mg IVP DAILY [facility] Last Admin: 10/01/17 14:38 Dose: 40 mg Saccharomyces Boulardii (Florastor) 250 mg PO BID [facility] Last Admin: 10/01/17 18:20 Dose: 250 mg Physical Exam - Constitutional Appears: Non-toxic, No Acute Distress - Head Exam Head Exam: NORMAL INSPECTION - Eye Exam Eye Exam: EOMI, Normal appearance - ENT Exam ENT Exam: Mucous Membranes Moist - Respiratory Exam Respiratory Exam: Clear to Auscultation Bilateral - Cardiovascular Exam Cardiovascular Exam: REGULAR RHYTHM, +S1, +S2 - GI/Abdominal Exam GI & Abdominal Exam: Normal Bowel Sounds, Soft, Tenderness Additional comments: mild epigastric tenderness to palpation, no rebound/guarding no palpable hepato/splenomegaly - Extremities Exam Extremities exam: Positive for: normal inspection - Neurological Exam Neurological exam: Alert, CN II-XII Intact, Oriented x3, Reflexes Normal - Psychiatric Exam Psychiatric exam: Normal Affect, Normal Mood - Skin Skin Exam: Dry, Intact, Normal Color, Warm Results - Vital Signs Recent Vital Signs: Last Vital Signs Temp 98.5 F 10/02/17 00:00 Pulse 74 10/02/17 00:00 Resp 20 10/02/17 00:00 BP 116/66 10/02/17 00:00 Pulse Ox 97 10/02/17 00:00 - Labs Result Diagrams: 10/02/17 06:47 10/02/17 06:47 Labs: Laboratory Results - last 24 hr 10/01/17 10/01/17 10/01/17 07:48 11:12 11:32 WBC RBC Hgb Hct MCV MCH MCHC RDW Plt Count MPV Neut % (Auto) Lymph % (Auto) Delta % (Auto) Eos % (Auto) Baso % (Auto) Neut # (Auto) Lymph # (Auto) Delta # (Auto) Eos # (Auto) Baso # (Auto) Neutrophils % (Manual) 92 H Lymphocytes % (Manual) 4 L Monocytes % (Manual) 3 Basophils % (Manual) 1 Toxic Granulation Present Platelet Estimate Normal Large Platelets Present Anisocytosis (manual) Slight PT 12.7 H INR 1.2 APTT 38 H Sodium Potassium Chloride Carbon Dioxide Anion Gap BUN Creatinine Est GFR ( Amer) Est GFR (Non-Af Amer) Random Glucose Calcium Total Bilirubin AST ALT Alkaline Phosphatase Total Protein Albumin Globulin Albumin/Globulin Ratio Urine Color Urine Clarity Urine pH Ur Specific [place] Urine Protein Urine Glucose (UA) Urine Ketones Urine Blood Urine Nitrate Urine Bilirubin Urine Urobilinogen Ur Leukocyte Esterase Urine WBC (Auto) Urine RBC (Auto) Influenza Typ A,B (EIA) Ur L.pneumophila Ag Mycoplasma pneumon IgM Negative 10/01/17 10/01/17 10/01/17 12:29 16:44 16:44 WBC RBC Hgb Hct MCV MCH MCHC RDW Plt Count MPV Neut % (Auto) Lymph % (Auto) Delta % (Auto) Eos % (Auto) Baso % (Auto) Neut # (Auto) Lymph # (Auto) Delta # (Auto) Eos # (Auto) Baso # (Auto) Neutrophils % (Manual) Lymphocytes % (Manual) Monocytes % (Manual) Basophils % (Manual) Toxic Granulation Platelet Estimate Large Platelets Anisocytosis (manual) PT INR APTT Sodium Potassium Chloride Carbon Dioxide Anion Gap BUN Creatinine Est GFR ( Amer) Est GFR (Non-Af Amer) Random Glucose Calcium Total Bilirubin AST ALT Alkaline Phosphatase Total Protein Albumin Globulin Albumin/Globulin Ratio Urine Color Yellow Urine Clarity Clear Urine pH 6.0 Ur Specific [place] 1.010 Urine Protein Negative Urine Glucose (UA) Normal Urine Ketones 1+ H Urine Blood 1+ H Urine Nitrate Negative Urine Bilirubin Negative Urine Urobilinogen Normal Ur Leukocyte Esterase Neg Urine WBC (Auto) 1 Urine RBC (Auto) 2 Influenza Typ A,B (EIA) Negative for flu a/b Ur L.pneumophila Ag Negative Mycoplasma pneumon IgM 10/01/17 10/02/17 10/02/17 16:44 06:47 06:47 WBC 16.4 H RBC 5.01 Hgb 14.3 Hct 41.4 MCV 82.8 MCH 28.5 MCHC 34.4 RDW 13.3 Plt Count 247 MPV 9.3 Neut % (Auto) 76.8 H Lymph % (Auto) 10.6 L Delta % (Auto) 11.0 H Eos % (Auto) 1.0 Baso % (Auto) 0.6 Neut # (Auto) 12.6 H Lymph # (Auto) 1.7 Delta # (Auto) 1.8 H Eos # (Auto) 0.2 Baso # (Auto) 0.1 Neutrophils % (Manual) Lymphocytes % (Manual) Monocytes % (Manual) Basophils % (Manual) Toxic Granulation Platelet Estimate Large Platelets Anisocytosis (manual) PT INR APTT Sodium 138 137 Potassium 4.3 4.7 Chloride 100 102 Carbon Dioxide 26 26 Anion Gap 16 14 BUN 7 L 9 Creatinine 0.7 L 0.7 L Est GFR ( Amer) > 60 > 60 Est GFR (Non-Af Amer) > 60 > 60 Random Glucose 115 H 102 Calcium 8.9 8.5 L Total Bilirubin 2.2 H 1.9 H AST 15 L 14 L ALT 25 24 Alkaline Phosphatase 71 65 Total Protein 7.1 6.7 Albumin 4.2 3.7 Globulin 2.8 3.0 Albumin/Globulin Ratio 1.5 1.2 Urine Color Urine Clarity Urine pH Ur Specific [place] Urine Protein Urine Glucose (UA) Urine Ketones Urine Blood Urine Nitrate Urine Bilirubin Urine Urobilinogen Ur Leukocyte Esterase Urine WBC (Auto) Urine RBC (Auto) Influenza Typ A,B (EIA) Ur L.pneumophila Ag Mycoplasma pneumon IgM Assessment & Plan - Assessment and Plan (Free Text) Assessment: Abdominal pain Abdominal US reviewed by me showing cholelithiasis, thickened GB wall, sludge, normal caliber CBD Plan: - NPO - Continue with antibiotic therapy - Continue with IVF hydration, supportive care - MRCP ordered by surgical team, follow up results - Continue to monitor LFTs - If no gross biliary abnormalities noted on MR imaging, patient can likely proceed with surgical intervention. Will continue to monitor patient clinical course.
[2017-10-02] MEDS: Saccharomyces Boulardi 250 mg Cap PO SCH ×2 (09:56→17:41)
--- NOTE | 2017-10-02 11:50 | CP.PCM.PN ---
Subjective - Date & Time of Evaluation Date of Evaluation: 10/02/17 Time of Evaluation: 11:48 - Subjective Subjective: General Surgery Progress Note for Dr. Menendez 36M seen and evaluated at bedside this AM at bedside. Pt states his abdominal pain has slightly improved since yesterday but still feels bloated. He has not ambulated. He has not had a BM or passing flatus. No acute events overnight. Denies f/c or n/v/d. Objective - Vital Signs/Intake and Output Vital Signs (last 24 hours): Temp Pulse Resp BP Pulse Ox 98.5 F 74 20 116/66 97 10/02/17 00:00 10/02/17 00:00 10/02/17 00:00 10/02/17 00:00 10/02/17 00:00 Intake and Output: 10/02/17 10/02/17 06:59 18:59 Intake Total 1216 Balance 1216 - Medications Medications: Current Medications Metronidazole (Flagyl) 500 mg in 100 mls @ 100 mls/hr IVPB Q8H [facility] PRN Reason: Protocol Last Admin: 10/02/17 05:03 Dose: 100 mls/hr Sodium Chloride (Sodium Chloride 0.9%) 1,000 mls @ 102 mls/hr IV .Q9H49M [facility] Last Admin: 10/02/17 08:11 Dose: Not Given Piperacillin Sod/Tazobactam Sod (Zosyn 3.375 In Ns 100ml) 100 mls @ 200 mls/hr IVPB Q6 [facility] PRN Reason: Protocol Last Admin: 10/02/17 06:06 Dose: 200 mls/hr Ketorolac Tromethamine (Toradol) 30 mg IVP Q6 PRN PRN Reason: Pain, severe (8-10) Last Admin: 10/02/17 04:00 Dose: 30 mg Ketorolac Tromethamine (Toradol) 15 mg IVP Q6 PRN PRN Reason: Pain, moderate (4-7) Pantoprazole Sodium (Protonix Inj) 40 mg IVP DAILY [facility] Last Admin: 10/02/17 09:56 Dose: 40 mg Saccharomyces Boulardii (Florastor) 250 mg PO BID [facility] Last Admin: 10/02/17 09:56 Dose: 250 mg - Labs Labs: 10/02/17 06:47 10/02/17 06:47 PT 12.7 SECONDS (9.7-12.2) H 10/01/17 11:12 INR 1.2 10/01/17 11:12 APTT 38 SECONDS (21-34) H 10/01/17 11:12 - Constitutional Appears: Well, Non-toxic, No Acute Distress - Head Exam Head Exam: ATRAUMATIC, NORMAL INSPECTION, NORMOCEPHALIC - Eye Exam Eye Exam: EOMI, Normal appearance - Respiratory Exam Respiratory Exam: Clear to Ausculation Bilateral, NORMAL BREATHING PATTERN - Cardiovascular Exam Cardiovascular Exam: REGULAR RHYTHM, +S1, +S2. absent: Murmur - GI/Abdominal Exam GI & Abdominal Exam: Distended, Soft, Tenderness, Normal Bowel Sounds. absent: Firm, Guarding, Rigid, Rebound - Rectal Exam Rectal Exam: Deferred - Neurological Exam Neurological Exam: Alert, Awake, Oriented x3 - Psychiatric Exam Psychiatric exam: Normal Affect, Normal Mood - Skin Skin Exam: Dry, Intact, Normal Color, Warm Assessment and Plan - Assessment and Plan (Free Text) Assessment: 36M w/ LLL Pnueumonia, Acute Cholecystitis with Cholelithiasis, Abnormal LFTs Plan: MRCP tuesday GI consult - supportive care and can proceed with surgical intervention when patient medically optimized Cardiac clearance - ECHO pending 2/2 RBBB AM labs to monitor LFTs c/w pain management IV Abx IVF, NPO further recs per Dr. Shon Bey PGY1
--- NOTE | 2017-10-02 16:01 | CP.PCM.CON ---
History of Present Illness - History of Present Illness History of Present Illness: 36 year old male presents to hospital with complaint of progressive abdominal pain. He describes sharp epigastric pain radiating to RUQ which has gotten progressively worse over the past one week. started on empiric IV antibiotics for possible cholecystitis and pneumonia Social history: smokes 5 cigarettes daily, no ETOH use Family history: reviewed, denies history of GI malignancies Review of Systems - Review of Systems All systems: reviewed and no additional remarkable complaints except - Constitutional Constitutional: As Per HPI - EENT Eyes: absent: As Per HPI, Blind Spots, Blurred Vision, Change in Vision, Decreased Night Vision, Diplopia, Discharge, Dry Eye, Exophthalmos, Floaters, Irritation, Itchy Eyes, Loss of Peripheral Vision, Pain, Photophobia, Requires Corrective Lenses, Sees Flashes, Spots in Vision, Tunnel Vision, Other Visual Disturbances, Loss of Vision, Other Ears: absent: As Per HPI, Decreased Hearing, Ear Discharge, Ear Pain, Tinnitus, Abnormal Hearing, Disequilibrium, Dizziness, Other Nose/Mouth/Throat: absent: As Per HPI, Epistaxis, Nasal Congestion, Nasal Discharge, Nasal Obstruction, Nasal Trauma, Nose Pain, Post Nasal Drip, Sinus Pain, Sinus Pressure, Bleeding Gums, Change in Voice, Dental Pain, Dry Mouth, Dysphagia, Halitosis, Hoarsness, Lip Swelling, Mouth Lesions, Mouth Pain, Odynophagia, Sore Throat, Throat Swelling, Tongue Swelling, Facial Pain, Neck Pain, Neck Mass, Other - Cardiovascular Cardiovascular: absent: As Per HPI, Acrocyanosis, Chest Pain, Chest Pain at Rest , Chest Pain with Activity, Claudication, Diaphoresis, Dyspnea, Dyspnea on Exertion, Edema, Irregular Heart Rhythm, Pain Radiating to Arm/Neck/Jaw, Leg Edema, Leg Ulcers, Lightheadedness, Orthopnea, Palpitations, Paroxysmal Nocturnal Dyspnea, Pedal Edema, Radiating Pain, Rapid Heart Rate, Slow Heart Rate, Syncope, Other - Respiratory Respiratory: As Per HPI - Gastrointestinal Gastrointestinal: As Per HPI - Genitourinary Genitourinary: absent: As Per HPI, Change in Urinary Stream, Difficulty Urinating, Dysuria, Flank Pain, Hematuria, Pyuria, Nocturia, Urinary Incontinence, Urinary Frequency, Urinary Hesitance, Urinary Urgency, Voiding Freq/Small Amts, Freq UTI, Hx Renal/Bladder Calculi, Hx /Renal Surgery, Bladder Distension, Other - Musculoskeletal Musculoskeletal: absent: As Per HPI, Abnormal Gait, Arthralgias, Atrophy, Back Pain, Deformity, Joint Swelling, Limited Range of Motion, Loss of Height, Muscle Cramps, Muscle Weakness, Myalgias, Neck Pain, Numbness, Radiating Pain into Limb, Stiffness, Tingling, Other - Integumentary Integumentary: absent: As Per HPI, Acne, Alopecia, Bleeding Lesions, Change in Hair, Change in Nails, Change in Pigmentation, Changing Lesions, Dry Skin, Erythema, Furuncle, Hirsutism, Lesions, New Lesions, Non-Healing Lesions, Photosensitivity, Pruritus, Rash, Skin Pain, Skin Ulcer, Sores, Striae, Swelling , Unusual Bruising, Wounds, Jaundice, Other - Neurological Neurological: absent: As Per HPI, Abnormal Gait, Abnormal Hearing, Abnormal Movements, Abnormal Speech, Behavioral Changes, Burning Sensations, Confusion, Convulsions, Disequilibrium, Dizziness, Numbness, Focal Weakness, Frequent Falls , Headaches, Lack of Coordination, Loss of Vision, Memory Loss, Paresthesias, Radicular Pain, Restless Legs, Sensory Deficit, Syncope, Tingling, Tremor, Vertigo, Weakness, Other Visual Disturbances, Other - Psychiatric Psychiatric: absent: As Per HPI, Abnormal Sleep Pattern, Anhedonia, Anxiety, Auditory Hallucinations, Behavioral Changes, Change in Appetite, Change in Libido, Confusion, Depression, Difficulty Concentrating, Hallucinations, Homicidal Ideation, Hopelessness, Irritability, Memory Loss, Mood Swings, Panic Attacks, Paranoia, Suicidal Ideation, Visual Hallucinations, Tactile Hallucinations, Other - Endocrine Endocrine: absent: As Per HPI, Change in Body Appearance, Change in Libido, Cold Intolorance, Deepening of Voice, Excessive Sweating, Fatigue, Flushing, Heat Intolorance, Increase in Ring/Shoe/Hat Size, Palpitations, Polydipsia, Polyphagia, Polyuria, Other - Hematologic/Lymphatic Hematologic: absent: As Per HPI, Easy Bleeding, Easy Bruising, Lymphadenopathy, Other Past Patient History - Infectious Disease Hx of Infectious Diseases: None - Tetanus Immunizations Tetanus Immunization: Unknown - Past Medical History & Family History Past Medical History?: Yes - Past Social History Smoking Status: Light Smoker < 10 Cigarettes Daily Chewing Tobacco Use: No Cigar Use: No Alcohol: None Drugs: Denies - PULMONARY Hx Pneumonia: Yes - MUSCULOSKELETAL/RHEUMATOLOGICAL Hx Falls: No - PSYCHIATRIC Hx Substance Use: No - SURGICAL HISTORY Hx Surgeries: No - ANESTHESIA Hx Anesthesia: No Meds Allergies/Adverse Reactions: Allergies Allergy/AdvReac Type Severity Reaction Status Date / Time No Known Allergies Allergy Verified 09/23/17 20:58 - Medications Medications: Current Medications Metronidazole (Flagyl) 500 mg in 100 mls @ 100 mls/hr IVPB Q8H [facility] PRN Reason: Protocol Last Admin: 10/02/17 13:00 Dose: 100 mls/hr Sodium Chloride (Sodium Chloride 0.9%) 1,000 mls @ 102 mls/hr IV .Q9H49M [facility] Last Admin: 10/02/17 08:11 Dose: Not Given Piperacillin Sod/Tazobactam Sod (Zosyn 3.375 In Ns 100ml) 100 mls @ 200 mls/hr IVPB Q6 [facility] PRN Reason: Protocol Last Admin: 10/02/17 12:59 Dose: 200 mls/hr Ketorolac Tromethamine (Toradol) 30 mg IVP Q6 PRN PRN Reason: Pain, severe (8-10) Last Admin: 10/02/17 04:00 Dose: 30 mg Ketorolac Tromethamine (Toradol) 15 mg IVP Q6 PRN PRN Reason: Pain, moderate (4-7) Pantoprazole Sodium (Protonix Inj) 40 mg IVP DAILY [facility] Last Admin: 10/02/17 09:56 Dose: 40 mg Saccharomyces Boulardii (Florastor) 250 mg PO BID [facility] Last Admin: 10/02/17 09:56 Dose: 250 mg Physical Exam - Constitutional Appears: Non-toxic, Chronically Ill - Head Exam Head Exam: ATRAUMATIC, NORMAL INSPECTION, NORMOCEPHALIC - Eye Exam Eye Exam: EOMI, PERRL. absent: Scleral icterus - ENT Exam ENT Exam: Mucous Membranes Dry, Normal External Ear Exam - Neck Exam Neck exam: Negative for: Lymphadenopathy - Respiratory Exam Respiratory Exam: Decreased Breath Sounds, Clear to Auscultation Bilateral - Cardiovascular Exam Cardiovascular Exam: REGULAR RHYTHM, +S1, +S2 - GI/Abdominal Exam GI & Abdominal Exam: Diminished Bowel Sounds - Rectal Exam Rectal Exam: Deferred - Exam Exam: NORMAL INSPECTION - Extremities Exam Extremities exam: Negative for: pedal edema - Back Exam Back exam: absent: CVA tenderness (L), CVA tenderness (R), paraspinal tenderness - Neurological Exam Neurological exam: Alert, CN II-XII Intact, Oriented x3, Reflexes Normal - Psychiatric Exam Psychiatric exam: Depressed - Skin Skin Exam: Dry, Intact Results - Vital Signs Recent Vital Signs: Last Vital Signs Temp 99.1 F 10/02/17 15:00 Pulse 65 10/02/17 15:00 Resp 20 10/02/17 15:00 BP 135/57 L 10/02/17 15:00 Pulse Ox 98 10/02/17 15:00 - Labs Result Diagrams: 10/02/17 06:47 10/02/17 06:47 Labs: Laboratory Results - last 24 hr 10/01/17 10/01/17 10/01/17 11:32 16:44 16:44 WBC RBC Hgb Hct MCV MCH MCHC RDW Plt Count MPV Neut % (Auto) Lymph % (Auto) Real % (Auto) Eos % (Auto) Baso % (Auto) Neut # (Auto) Lymph # (Auto) Real # (Auto) Eos # (Auto) Baso # (Auto) Sodium Potassium Chloride Carbon Dioxide Anion Gap BUN Creatinine Est GFR ( Amer) Est GFR (Non-Af Amer) Random Glucose Calcium Total Bilirubin AST ALT Alkaline Phosphatase Total Protein Albumin Globulin Albumin/Globulin Ratio Urine Color Yellow Urine Clarity Clear Urine pH 6.0 Ur Specific [place] 1.010 Urine Protein Negative Urine Glucose (UA) Normal Urine Ketones 1+ H Urine Blood 1+ H Urine Nitrate Negative Urine Bilirubin Negative Urine Urobilinogen Normal Ur Leukocyte Esterase Neg Urine WBC (Auto) 1 Urine RBC (Auto) 2 Ur L.pneumophila Ag Negative Mycoplasma pneumon IgM Negative 10/01/17 10/02/17 10/02/17 16:44 06:47 06:47 WBC 16.4 H RBC 5.01 Hgb 14.3 Hct 41.4 MCV 82.8 MCH 28.5 MCHC 34.4 RDW 13.3 Plt Count 247 MPV 9.3 Neut % (Auto) 76.8 H Lymph % (Auto) 10.6 L Real % (Auto) 11.0 H Eos % (Auto) 1.0 Baso % (Auto) 0.6 Neut # (Auto) 12.6 H Lymph # (Auto) 1.7 Real # (Auto) 1.8 H Eos # (Auto) 0.2 Baso # (Auto) 0.1 Sodium 138 137 Potassium 4.3 4.7 Chloride 100 102 Carbon Dioxide 26 26 Anion Gap 16 14 BUN 7 L 9 Creatinine 0.7 L 0.7 L Est GFR ( Amer) > 60 > 60 Est GFR (Non-Af Amer) > 60 > 60 Random Glucose 115 H 102 Calcium 8.9 8.5 L Total Bilirubin 2.2 H 1.9 H AST 15 L 14 L ALT 25 24 Alkaline Phosphatase 71 65 Total Protein 7.1 6.7 Albumin 4.2 3.7 Globulin 2.8 3.0 Albumin/Globulin Ratio 1.5 1.2 Urine Color Urine Clarity Urine pH Ur Specific [place] Urine Protein Urine Glucose (UA) Urine Ketones Urine Blood Urine Nitrate Urine Bilirubin Urine Urobilinogen Ur Leukocyte Esterase Urine WBC (Auto) Urine RBC (Auto) Ur L.pneumophila Ag Mycoplasma pneumon IgM Assessment & Plan (1) Cholecystitis Status: Acute (2) Pneumonia Status: Acute - Assessment and Plan (Free Text) Assessment: cont iv zosyn await culltures for echo and MRCP in am possible choly lap
[2017-10-02] MEDS: Piperacill/Tazo 3.375gm in Dex 3.375 GM/50 ML BAG IVPB SCH (18:00)
[2017-10-02 19:46] LABS: STREP PNEUMONIAE NEGATIVE (NEGATIVE); STREPTOCOCCUS B NEGATIVE (NEGATIVE)
[2017-10-02 19:47] LABS: N MENINGITIS ACY/W135 NEGATIVE (NEGATIVE); N MENINGITIS B/ECOLI K1 NEGATIVE (NEGATIVE)
--- NOTE | 2017-10-02 21:17 | PN ---
DATE: 10/02/2017 SUBJECTIVE: The patient denies any chest pain. He is tolerating thin liquid diet. PHYSICAL EXAMINATION: VITAL SIGNS: Blood pressure 135/57, heart rate 65, temperature 99.1, respirations 20. HEENT: Normocephalic. CHEST: Clear. HEART: S1 and S2 regular. EXTREMITIES: No edema. LABORATORY DATA: Today's white count is 16.4, hemoglobin and hematocrit and platelet count are within normal limit. Today's SMA-7 is within normal limit except for creatinine of 0.78. Total bilirubin is elevated at 1.9. ASSESSMENT: Acute calculous cholecystitis. RECOMMENDATIONS: Continue current IV Flagyl and IV Zosyn. Awaiting echocardiographic study to be done tomorrow. However, ERCP or surgical intervention can proceed regardless of the echo study. Yovany Cobian MD
[2017-10-03] MEDS: Piperacill/Tazo 3.375gm in Dex 3.375 GM/50 ML BAG IVPB SCH ×4 (00:01→18:24)
[2017-10-03] MEDS: Sodium Chloride 0.9% 1,000 ML IV SCH ×3 (04:25→22:14)
[2017-10-03] MEDS: metroNIDAZOLE IV 500 mg/100 ml 500 MG/100 ML BAG IVPB SCH ×3 (05:04→22:06)
[2017-10-03 07:30] LABS: BASO # 0.1 K/uL (0.0-0.2); BASO % 0.6 % (0.0-2.0); EOS # 0.3 K/uL (0.0-0.7); EOS % 2.3 % (0.0-4.0); HEMOGLOBIN 14.7 g/dL (12.0-18.0); LYMPH # 1.7 K/uL (1.0-4.3); LYMPH % 11.5 % (20.0-40.0); MEAN CELL VOLUME 83.3 fL (80.0-94.0); MEAN CORPUSCULAR HEMOGLOBIN 28.5 pg (27.0-31.0); MEAN CORPUSCULAR HGB CONC 34.2 g/dL (33.0-37.0); MEAN PLATELET VOLUME 9.7 fL (7.2-11.7); MONO # 1.6 K/uL (0.0-0.8); MONO % 10.5 % (0.0-10.0); NEUT # 11.2 K/uL (1.8-7.0); NEUT % 75.1 % (50.0-75.0); NRBC % 0.1 % (0.0-2.0); RBC 5.15 Mil/uL (4.40-5.90); RED CELL DISTRIBUTION WIDTH 13.5 % (11.5-14.5)
[2017-10-03 07:37] LABS: ALB/GLOB RATIO 1.2 (1.0-2.1); ALBUMIN 3.7 g/dL (3.5-5.0); ALT/SGPT 22 U/L (21-72); AST/SGOT 21 U/L (17-59); BLOOD UREA NITROGEN 8 mg/dL (9-20); CALCIUM 8.3 mg/dl (8.6-10.4); GFR AFRICAN-AMERICAN > 60; GFR NON-AFRICAN AMERICAN > 60
--- NOTE | 2017-10-03 08:11 | CP.PCM.PN ---
Subjective - Date & Time of Evaluation Date of Evaluation: 10/03/17 Time of Evaluation: 08:05 - Subjective Subjective: 36M seen and evaluated this morning at bedside. No acute events overnight. Pt complains of abdominal tenderness, but well controlled with pain medication. Has not had BM or passing flatus. Pt has not been ambulating. Denies f/c or n/v/ d. Objective - Vital Signs/Intake and Output Vital Signs (last 24 hours): Temp Pulse Resp BP Pulse Ox 98 F 58 L 20 124/69 98 10/03/17 07:55 10/03/17 07:55 10/03/17 07:55 10/03/17 07:55 10/03/17 07:55 Intake and Output: 10/03/17 10/03/17 06:59 18:59 Intake Total 1856 Balance 1856 - Medications Medications: Current Medications Metronidazole (Flagyl) 500 mg in 100 mls @ 100 mls/hr IVPB Q8H [facility] PRN Reason: Protocol Last Admin: 10/03/17 05:04 Dose: 100 mls/hr Sodium Chloride (Sodium Chloride 0.9%) 1,000 mls @ 102 mls/hr IV .Q9H49M [facility] Last Admin: 10/03/17 04:25 Dose: 102 mls/hr Piperacillin Sod/Tazobactam Sod (Zosyn 3.375 Gm Iv Premix) 3.375 gm in 50 mls @ 200 mls/hr IVPB Q6 [facility] PRN Reason: Protocol Last Admin: 10/03/17 06:06 Dose: 200 mls/hr Ketorolac Tromethamine (Toradol) 30 mg IVP Q6 PRN PRN Reason: Pain, severe (8-10) Last Admin: 10/02/17 04:00 Dose: 30 mg Ketorolac Tromethamine (Toradol) 15 mg IVP Q6 PRN PRN Reason: Pain, moderate (4-7) Pantoprazole Sodium (Protonix Inj) 40 mg IVP DAILY [facility] Last Admin: 10/02/17 09:56 Dose: 40 mg Saccharomyces Boulardii (Florastor) 250 mg PO BID [facility] Last Admin: 10/02/17 17:41 Dose: 250 mg - Labs Labs: 10/03/17 06:52 10/03/17 06:52 PT 12.7 SECONDS (9.7-12.2) H 10/01/17 11:12 INR 1.2 10/01/17 11:12 APTT 38 SECONDS (21-34) H 10/01/17 11:12 - Constitutional Appears: Well, Non-toxic, No Acute Distress - Head Exam Head Exam: ATRAUMATIC, NORMAL INSPECTION, NORMOCEPHALIC - Eye Exam Eye Exam: EOMI, Normal appearance - ENT Exam ENT Exam: Mucous Membranes Moist, Normal Exam - Respiratory Exam Respiratory Exam: Clear to Ausculation Bilateral, NORMAL BREATHING PATTERN - Cardiovascular Exam Cardiovascular Exam: REGULAR RHYTHM, +S1, +S2. absent: Murmur - GI/Abdominal Exam GI & Abdominal Exam: Soft, Tenderness, Normal Bowel Sounds. absent: Distended, Firm, Guarding - Rectal Exam Rectal Exam: Deferred - Neurological Exam Neurological Exam: Alert, Awake, Oriented x3 - Psychiatric Exam Psychiatric exam: Normal Affect, Normal Mood - Skin Skin Exam: Dry, Intact, Normal Color, Warm Assessment and Plan - Assessment and Plan (Free Text) Assessment: 36M w/ cholelithiasis and abnormal LFTs Plan: MRCP today GI consult - supportive care and can proceed with surgical intervention when patient medically optimized Cardio cleared AM labs to monitor LFTs c/w pain management IV Abx per ID - urine and blood cx show no growth IVF, NPO further recs per Dr. Shon Bey PGY1
--- NOTE | 2017-10-03 08:33 | CP.PCM.PN ---
<[email or web address] - Last Filed: 10/03/17 11:54> Subjective - Date & Time of Evaluation Date of Evaluation: 10/03/17 Time of Evaluation: 08:32 - Subjective Subjective: GI Fellow PGY4, progress note. He is still complaining of RUQ pain. No n/v/f. His last BM was 3 days ago. He is passing flatus. 12pt ROS completed and negative except for as above. Objective - Vital Signs/Intake and Output Vital Signs (last 24 hours): Temp Pulse Resp BP Pulse Ox 98 F 58 L 20 124/69 98 10/03/17 07:55 10/03/17 07:55 10/03/17 07:55 10/03/17 07:55 10/03/17 07:55 Intake and Output: 10/03/17 10/03/17 06:59 18:59 Intake Total 1856 Balance 1856 - Medications Medications: Current Medications Metronidazole (Flagyl) 500 mg in 100 mls @ 100 mls/hr IVPB Q8H [facility] PRN Reason: Protocol Last Admin: 10/03/17 05:04 Dose: 100 mls/hr Sodium Chloride (Sodium Chloride 0.9%) 1,000 mls @ 102 mls/hr IV .Q9H49M [facility] Last Admin: 10/03/17 04:25 Dose: 102 mls/hr Piperacillin Sod/Tazobactam Sod (Zosyn 3.375 Gm Iv Premix) 3.375 gm in 50 mls @ 200 mls/hr IVPB Q6 [facility] PRN Reason: Protocol Last Admin: 10/03/17 06:06 Dose: 200 mls/hr Ketorolac Tromethamine (Toradol) 30 mg IVP Q6 PRN PRN Reason: Pain, severe (8-10) Last Admin: 10/02/17 04:00 Dose: 30 mg Ketorolac Tromethamine (Toradol) 15 mg IVP Q6 PRN PRN Reason: Pain, moderate (4-7) Pantoprazole Sodium (Protonix Inj) 40 mg IVP DAILY [facility] Last Admin: 10/02/17 09:56 Dose: 40 mg Saccharomyces Boulardii (Florastor) 250 mg PO BID [facility] Last Admin: 10/02/17 17:41 Dose: 250 mg - Labs Labs: 10/03/17 06:52 07/16/18 06:52 PT 12.7 SECONDS (9.7-12.2) H 10/01/17 11:12 INR 1.2 10/01/17 11:12 APTT 38 SECONDS (21-34) H 10/01/17 11:12 - Constitutional Appears: Non-toxic, No Acute Distress - Head Exam Head Exam: ATRAUMATIC, NORMAL INSPECTION, NORMOCEPHALIC - Eye Exam Eye Exam: EOMI, Normal appearance, PERRL - ENT Exam ENT Exam: Mucous Membranes Moist, Normal Exam - Respiratory Exam Respiratory Exam: Clear to Ausculation Bilateral, NORMAL BREATHING PATTERN. absent: Wheezes - Cardiovascular Exam Cardiovascular Exam: RRR, +S1, +S2 - GI/Abdominal Exam GI & Abdominal Exam: Soft, Tenderness, Normal Bowel Sounds. absent: Distended - Extremities Exam Extremities Exam: Full ROM, Normal Capillary Refill, Normal Inspection - Neurological Exam Neurological Exam: Alert, Awake, Oriented x3 - Psychiatric Exam Psychiatric exam: Normal Affect, Normal Mood - Skin Skin Exam: Dry, Intact Assessment and Plan - Assessment and Plan (Free Text) Assessment: Abdominal pain, likely cholecystitis. Plan: - Discussed MRCP results with radiologist and CBD is WNL. - NPO - Continue with antibiotic therapy - Continue with IVF hydration, supportive care - Continue to monitor LFTs, improving. - Further management per surgical team - We will sign-off. Please reconsult for any other GI related concerns. Thank you. <Darian Olmos - Last Filed: 10/03/17 14:03> Objective - Vital Signs/Intake and Output Vital Signs (last 24 hours): Temp Pulse Resp BP Pulse Ox 98 F 58 L 20 124/69 98 10/03/17 07:55 10/03/17 07:55 10/03/17 07:55 10/03/17 07:55 10/03/17 07:55 Intake and Output: 10/03/17 10/03/17 06:59 18:59 Intake Total 1856 Balance 1856 - Medications Medications: Current Medications Metronidazole (Flagyl) 500 mg in 100 mls @ 100 mls/hr IVPB Q8H [facility] PRN Reason: Protocol Last Admin: 10/03/17 12:58 Dose: 100 mls/hr Sodium Chloride (Sodium Chloride 0.9%) 1,000 mls @ 102 mls/hr IV .Q9H49M [facility] Last Admin: 10/03/17 12:47 Dose: Not Given Piperacillin Sod/Tazobactam Sod (Zosyn 3.375 Gm Iv Premix) 3.375 gm in 50 mls @ 200 mls/hr IVPB Q6 [facility] PRN Reason: Protocol Last Admin: 10/03/17 11:47 Dose: 200 mls/hr Ketorolac Tromethamine (Toradol) 30 mg IVP Q6 PRN PRN Reason: Pain, severe (8-10) Last Admin: 10/02/17 04:00 Dose: 30 mg Ketorolac Tromethamine (Toradol) 15 mg IVP Q6 PRN PRN Reason: Pain, moderate (4-7) Pantoprazole Sodium (Protonix Inj) 40 mg IVP DAILY [facility] Last Admin: 10/03/17 10:33 Dose: 40 mg Saccharomyces Boulardii (Florastor) 250 mg PO BID [facility] Last Admin: 10/03/17 10:33 Dose: 250 mg - Labs Labs: 10/03/17 06:52 10/03/17 06:52 PT 12.7 SECONDS (9.7-12.2) H 10/01/17 11:12 INR 1.2 10/01/17 11:12 APTT 38 SECONDS (21-34) H 10/01/17 11:12 Attending/Attestation - Attestation I have personally seen and examined this patient.: Yes I have fully participated in the care of the patient.: Yes I have reviewed all pertinent clinical information, including history, physical exam and plan: Yes Notes (Text): 10/03/17 14:01 I have seen and examined patient with GI fellow. No acute events overnight, he continues to endorse epigastric and RUQ abdominal pain. He otherwise denies nausea, vomiting, fever/chills. Review of vitals from today are normal. Abdominal pain Acute cholecystitis MRCP reviewed with radiology - normal caliber CBD without presence of choledocholithiasis - NPO - Continue with antibiotic therapy - Follow up surgical recommendations regarding timing of potential cholecystectomy - No further planned GI interventions, will sign off case. Please reconsult as necessary, thank you.
[2017-10-03] MEDS ORDERED: Gadodiamide 287 mg/ml 20 ml IV ONE (09:25)
[2017-10-03] MEDS: Saccharomyces Boulardi 250 mg Cap PO SCH ×2 (10:33→18:24)
--- NOTE | 2017-10-03 11:39 | MRI ---
Date of service: 10/03/2017 PROCEDURE: Magnetic Resonance Cholangiopancreatography HISTORY: COMPARISON: Abdominal ultrasound dated 10/01/2017. TECHNIQUE: Multiplanar, multisequence MR images of the abdomen were obtained, including heavily T2 weighted MRCP images of the biliary system. Rotating maximum intensity projection images of the biliary system were generated. 10 mL Omniscan was injected intravenously. FINDINGS: MRCP: The common bile duct is of a normal caliber. No evidence of choledocholithiasis. No intrahepatic biliary ductal dilatation. LIVER: Unremarkable. GALLBLADDER: Distended gallbladder with minimal cholelithiasis with calculi seen in the dependent gallbladder as well as lodged within the gallbladder neck. Associated gallbladder wall thickening/edema and mild pericholecystic fluid is evident. SPLEEN: Unremarkable. PANCREAS: Unremarkable. ADRENALS: Unremarkable. KIDNEYS: Unremarkable. AORTA: No aneurysm. ASCITES: None. OTHER FINDINGS: Left lower lobe atelectasis versus infiltrate and very small effusion. IMPRESSION: Acute cholecystitis. No evidence of choledocholithiasis. Left lower lobe atelectasis versus infiltrate in very small effusion.
--- NOTE | 2017-10-03 13:08 | CP.PCM.PN ---
Subjective - Date & Time of Evaluation Date of Evaluation: 10/03/17 Time of Evaluation: 08:00 - Subjective Subjective: 36 year old male presents to hospital with complaint of progressive abdominal pain. He describes sharp epigastric pain radiating to RUQ which has gotten progressively worse over the past one week. started on empiric IV antibiotics for possible cholecystitis and pneumonia no fever Objective - Vital Signs/Intake and Output Vital Signs (last 24 hours): Temp Pulse Resp BP Pulse Ox 98 F 58 L 20 124/69 98 10/03/17 07:55 10/03/17 07:55 10/03/17 07:55 10/03/17 07:55 10/03/17 07:55 Intake and Output: 10/03/17 10/03/17 06:59 18:59 Intake Total 1856 Balance 1856 - Medications Medications: Current Medications Metronidazole (Flagyl) 500 mg in 100 mls @ 100 mls/hr IVPB Q8H [facility] PRN Reason: Protocol Last Admin: 10/03/17 12:58 Dose: 100 mls/hr Sodium Chloride (Sodium Chloride 0.9%) 1,000 mls @ 102 mls/hr IV .Q9H49M [facility] Last Admin: 10/03/17 12:47 Dose: Not Given Piperacillin Sod/Tazobactam Sod (Zosyn 3.375 Gm Iv Premix) 3.375 gm in 50 mls @ 200 mls/hr IVPB Q6 [facility] PRN Reason: Protocol Last Admin: 10/03/17 11:47 Dose: 200 mls/hr Ketorolac Tromethamine (Toradol) 30 mg IVP Q6 PRN PRN Reason: Pain, severe (8-10) Last Admin: 10/02/17 04:00 Dose: 30 mg Ketorolac Tromethamine (Toradol) 15 mg IVP Q6 PRN PRN Reason: Pain, moderate (4-7) Pantoprazole Sodium (Protonix Inj) 40 mg IVP DAILY [facility] Last Admin: 10/03/17 10:33 Dose: 40 mg Saccharomyces Boulardii (Florastor) 250 mg PO BID [facility] Last Admin: 10/03/17 10:33 Dose: 250 mg - Labs Labs: 10/03/17 06:52 10/03/17 06:52 PT 12.7 SECONDS (9.7-12.2) H 10/01/17 11:12 INR 1.2 10/01/17 11:12 APTT 38 SECONDS (21-34) H 10/01/17 11:12 - Constitutional Appears: Non-toxic, Chronically Ill - Head Exam Head Exam: NORMOCEPHALIC - Eye Exam Eye Exam: PERRL - ENT Exam ENT Exam: Mucous Membranes Dry - Neck Exam Neck Exam: absent: Lymphadenopathy - Respiratory Exam Respiratory Exam: Decreased Breath Sounds - Cardiovascular Exam Cardiovascular Exam: REGULAR RHYTHM - GI/Abdominal Exam GI & Abdominal Exam: Distended - Rectal Exam Rectal Exam: Deferred - Exam Exam: NORMAL INSPECTION - Extremities Exam Extremities Exam: absent: Pedal Edema - Back Exam Back Exam: absent: CVA tenderness (L), CVA tenderness (R) - Neurological Exam Neurological Exam: Alert, Awake, Oriented x3 - Psychiatric Exam Psychiatric exam: Normal Mood - Skin Skin Exam: Dry Assessment and Plan (1) Cholecystitis Status: Acute (2) Pneumonia Status: Acute - Assessment and Plan (Free Text) Assessment: cont iv rx surgical follow up
--- NOTE | 2017-10-03 14:31 | CP.PCM.PN ---
<OrquideaEmiliana Henri - Last Filed: 10/03/17 19:03> Subjective - Date & Time of Evaluation Date of Evaluation: 10/03/17 Time of Evaluation: 19:03 - Subjective Subjective: PGY-1 Medicine Progress Note for hospitalist Dr. Babb Field Crop Grower Service used: Tayla #[id number] Patient was seen and examined today at bedside in no acute distress. He had just returned from ERCP. Nurse reported no overnight events. Patient reported no new acute problems. Complained of abdominal pain on exertion and movement, none when lying still. Denies nausea, vomiting, constipation, diarrhea. Objective - Vital Signs/Intake and Output Vital Signs (last 24 hours): Temp Pulse Resp BP Pulse Ox 98 F 58 L 20 124/69 98 10/03/17 07:55 10/03/17 07:55 10/03/17 07:55 10/03/17 07:55 10/03/17 07:55 Intake and Output: 10/03/17 10/03/17 06:59 18:59 Intake Total 1856 816 Balance 1856 816 - Medications Medications: Current Medications Metronidazole (Flagyl) 500 mg in 100 mls @ 100 mls/hr IVPB Q8H ALIZA PRN Reason: Protocol Last Admin: 10/03/17 12:58 Dose: 100 mls/hr Sodium Chloride (Sodium Chloride 0.9%) 1,000 mls @ 102 mls/hr IV .Q9H49M [facility] Last Admin: 10/03/17 12:47 Dose: Not Given Piperacillin Sod/Tazobactam Sod (Zosyn 3.375 Gm Iv Premix) 3.375 gm in 50 mls @ 200 mls/hr IVPB Q6 ALIZA PRN Reason: Protocol Last Admin: 10/03/17 11:47 Dose: 200 mls/hr Ketorolac Tromethamine (Toradol) 30 mg IVP Q6 PRN PRN Reason: Pain, severe (8-10) Last Admin: 10/02/17 04:00 Dose: 30 mg Ketorolac Tromethamine (Toradol) 15 mg IVP Q6 PRN PRN Reason: Pain, moderate (4-7) Pantoprazole Sodium (Protonix Inj) 40 mg IVP DAILY [facility] Last Admin: 10/03/17 10:33 Dose: 40 mg Saccharomyces Boulardii (Florastor) 250 mg PO BID ALIZA Last Admin: 10/03/17 10:33 Dose: 250 mg - Labs Labs: 10/03/17 06:52 10/03/17 06:52 PT 12.7 SECONDS (9.7-12.2) H 10/01/17 11:12 INR 1.2 10/01/17 11:12 APTT 38 SECONDS (21-34) H 10/01/17 11:12 - Constitutional Appears: Well, No Acute Distress - Head Exam Head Exam: ATRAUMATIC, NORMOCEPHALIC - Eye Exam Eye Exam: EOMI, Normal appearance. absent: Scleral icterus Pupil Exam: absent: Fixed, Irregular, Unequal - ENT Exam ENT Exam: Mucous Membranes Dry, Normal Exam - Neck Exam Neck Exam: Full ROM, Normal Inspection - Respiratory Exam Respiratory Exam: Clear to Ausculation Bilateral, NORMAL BREATHING PATTERN. absent: Rales, Rhonchi, Wheezes - Cardiovascular Exam Cardiovascular Exam: REGULAR RHYTHM, +S1, +S2. absent: Gallop, Rubs, Murmur - GI/Abdominal Exam GI & Abdominal Exam: Guarding, Soft, Tenderness, Normal Bowel Sounds. absent: Distended, Rebound Additional comments: tender to palpation on the RUQ - Extremities Exam Extremities Exam: Full ROM, Normal Capillary Refill, Normal Inspection Additional comments: IV on both forearms, good flow peripheral pulses present 3+ (radial, PT, DP) SCDs ordered, not using - Neurological Exam Neurological Exam: Alert, Awake, Oriented x3 - Psychiatric Exam Psychiatric exam: Normal Affect, Normal Mood - Skin Skin Exam: Dry, Intact, Pallor, Warm Assessment and Plan (1) Acute calculous cholecystitis Assessment & Plan: Abd US (10/01) Cholelithiasis and sludge in the gallbladder with associated gallbladder wall thickening measuring up to 4mm as well as associated gallbladder wall edema. MRCP (10/03) Acute cholecystitis, left lower lobe atelectasis versus infiltrate in very small effusion. Distended gallbladder with minimal cholelithiasis with calculi seen in the dependent gallbladder as well as lodged within the gallbladder neck. Associated gall bladder wall thickening/edema and mild pericholecystic fluid is evident. WBC trending down. Today: 15.0. Trend: 16.4, 20.7. GI consulted: Dr. Olmos - help appreciated - agree with plan: antibiotic therapy, IVF hydration, supportive care - Monitor LFTs - Signed off (10/03) ID consulted: Dr. Phillips - meseret appreciated - cont IV Zosyn - urine culture (10/01) no growth - final - blood culture (10/01) no growth - preliminary Surgery consulted: Dr. Marcelino - meseret appreciated - Lap teresa in the AM (10/04) - ECHO (10/01) no acute hemorrhage. cleared for surgery per Dr. Cobian - NPO starting now Medications: - Zosyn 3.375 gm IV Q6H - Metronidazole 500 mg IV Q8H - NS 1L @ 102mls/hr q9h49m Status: Acute (2) Pneumonia Assessment & Plan: CXR (10/01) Persistent dense rounded consolidative opacity at the left lung base concerning for underlying infiltrate. Adjacent small left pleural effusion. Diagnosed with LLL PNA on 09/20/17. Completed course of Azithromycin on 09/24. CTAB, asymptomatic during present visit. Probably improvement on clinical symptoms, lagging improvement on imaging. Status: Resolved (3) Prophylactic measure Assessment & Plan: - SCDs - Protonix 40mg IV daily - Florastor 250mg PO bid - Toradol 15mg IV q6h for moderate pain - Toradol 30mg IV q6h for intense pain - Duoneb 3mL IH q6h PRN Status: Acute <Christina Babb V - Last Filed: 10/03/17 22:43> Objective - Vital Signs/Intake and Output Vital Signs (last 24 hours): Temp Pulse Resp BP Pulse Ox 97.4 F L 60 20 117/72 97 10/03/17 15:04 10/03/17 15:04 10/03/17 15:04 10/03/17 15:04 10/03/17 15:04 Intake and Output: 10/03/17 10/03/17 06:59 18:59 Intake Total 1856 816 Balance 1856 816 - Medications Medications: Current Medications Metronidazole (Flagyl) 500 mg in 100 mls @ 100 mls/hr IVPB Q8H ALIZA PRN Reason: Protocol Last Admin: 10/03/17 12:58 Dose: 100 mls/hr Sodium Chloride (Sodium Chloride 0.9%) 1,000 mls @ 102 mls/hr IV .Q9H49M [facility] Last Admin: 10/03/17 12:47 Dose: Not Given Piperacillin Sod/Tazobactam Sod (Zosyn 3.375 Gm Iv Premix) 3.375 gm in 50 mls @ 200 mls/hr IVPB Q6 ALIZA PRN Reason: Protocol Last Admin: 10/03/17 11:47 Dose: 200 mls/hr Ketorolac Tromethamine (Toradol) 30 mg IVP Q6 PRN PRN Reason: Pain, severe (8-10) Last Admin: 10/02/17 04:00 Dose: 30 mg Ketorolac Tromethamine (Toradol) 15 mg IVP Q6 PRN PRN Reason: Pain, moderate (4-7) Pantoprazole Sodium (Protonix Inj) 40 mg IVP DAILY [facility] Last Admin: 10/03/17 10:33 Dose: 40 mg Saccharomyces Boulardii (Florastor) 250 mg PO BID [facility] Last Admin: 10/03/17 10:33 Dose: 250 mg - Labs Labs: 10/03/17 06:52 10/03/17 06:52 PT 12.7 SECONDS (9.7-12.2) H 10/01/17 11:12 INR 1.2 10/01/17 11:12 APTT 38 SECONDS (21-34) H 10/01/17 11:12 Attending/Attestation - Attestation I have personally seen and examined this patient.: Yes I have fully participated in the care of the patient.: Yes I have reviewed all pertinent clinical information, including history, physical exam and plan: Yes Notes (Text): ppatient seen, examined, case discussed with durable medical equipment repairer. Patient denies headache, denies chest pain, denies cough, denies nausea, denies vomiting, reports right upper quadrant pain, and denies numbness nor tingling. patient's white count is improving from initially 20--->15 today patient is on IV antibiotic therapy. patient is nothing by mouth for OR for laparoscopic cholecystectomy. I did discuss with anesthesia given concern for pneumonia patient has received Z -Truman and completed it last ER visit for pneumonia. Patient is also on IV antibiotics that would help cover pneumonia. Patient lung exam is clear to auscultation there is no wheezing there is no real surgical rhonchi patient oxygenating well there is no noted hypoxia. 1). Acute Cholecystitis Assessment/plan * General surgery Dr. Menendez on board help appreciated * pending OR * GI Dr. Olmos would on board help appreciated * Has signed off help appreciated * abdominal ultrasound: Cholelithiasis with sludge in the gallbladder associated with gallbladder wall thickening measuring up to 4 mm as well as underlying gallbladder wall edema. Prominent common bile duct measuring up to 4.7 mm meters pancreas not well visualized. * MRCP noted for acute cholecystitis. No evidence of choledocholithiasis left lower atelectasis versus infiltrate and very small effusion. * echocardiogram pending read (this is an addendum from the resident note) * Zosyn 3.375 gm IV Q6H active since 10/02/2017 * Metronidiazole 500 mg IV [id number] since 10/01/2017 * IV fluids * Toradol 15 mg IV every 6 for moderate pain when necessary * Toradol 30 mg IV every 6 when necessary severe pain when necessary 2). Hx LLL Pneumonia * See Chest CT report. This was treated as outpatient. patient completed Z-Truman prior.. * As evidence of pneumonia can persist even after effective treatment, this is NOT failure of outpatient treatment: Respiratory Exam is normal, Repeat Chest X Ray should be done in roughly 6 weeks * CT chest dense focal consolidative opacification seen in the left lower lobe measuring 7.52.3 cm with adjacent small left pleural effusion also. Prevascular lymph node measuring 1.5 cm with noted distended gallbladder with associated wall thickening * Please note left lower lobe infiltrate was seen on abdominal obstructive series on September 23 where in he completed Z-Truman as outpatient. * Duonebs PRN shortness of breathe 3). Prophylaxis * Toradol 15 mg IV Q6H PRN Moderate Pain * Toradol 30 mg IV Q6H PRN Severe Pain * Protonix 40 mg IV 1x/day * Florastor 250 mg PO 2x/day Plan: patient is awaiting OR for acute cholecystitis. Patient is on IV antibiotics that will help cover acute cholecystitis. Patient is not symptomatic of pneumonia and noted it was the previous obstructive series x- ray on September 23 where in he completed outpatient therapy. Change inpatient status for surgical intervention
[2017-10-03] MEDS ORDERED: Albuterol-Ipratrop 3 mg / 0.5 (3 ml) UD INH PRN (19:07)
[2017-10-03 21:09] LABS: BASO # 0.1 K/uL (0.0-0.2); BASO % 0.6 % (0.0-2.0); EOS # 0.6 K/uL (0.0-0.7); EOS % 4.3 % (0.0-4.0); HEMOGLOBIN 14.9 g/dL (12.0-18.0); LYMPH # 2.2 K/uL (1.0-4.3); LYMPH % 16.2 % (20.0-40.0); MEAN CELL VOLUME 83.4 fL (80.0-94.0); MEAN CORPUSCULAR HEMOGLOBIN 28.3 pg (27.0-31.0); MEAN PLATELET VOLUME 9.2 fL (7.2-11.7); MONO # 1.3 K/uL (0.0-0.8); MONO % 9.3 % (0.0-10.0); NEUT # 9.6 K/uL (1.8-7.0); NEUT % 69.6 % (50.0-75.0); NRBC % 0.2 % (0.0-2.0); RBC 5.26 Mil/uL (4.40-5.90); RED CELL DISTRIBUTION WIDTH 13.4 % (11.5-14.5); WHITE BLOOD COUNT 13.8 K/uL (4.8-10.8)
[2017-10-03 21:35] LABS: ALB/GLOB RATIO 1.2 (1.0-2.1); ALBUMIN 3.6 g/dL (3.5-5.0); ALT/SGPT 24 U/L (21-72); AST/SGOT 24 U/L (17-59); BLOOD UREA NITROGEN 10 mg/dL (9-20); CALCIUM 8.5 mg/dl (8.6-10.4); GFR AFRICAN-AMERICAN > 60; GFR NON-AFRICAN AMERICAN > 60
--- NOTE | 2017-10-03 21:48 | PN ---
DATE: 10/03/2017 FOLLOWUP NOTE SUBJECTIVE: The patient denies any chest pain. PHYSICAL EXAMINATION: VITAL SIGNS: Blood pressure 117/72, heart rate 60, temperature 97.4, respirations 20. HEENT: Normocephalic. CHEST: Clear. HEART: S1 and S2 are regular. ABDOMEN: Mild epigastric tenderness. EXTREMITIES: No edema. LABORATORY DATA: Today's SMA-7 is within normal limit except for BUN and creatinine of 8 and 0.7 respectively. Today's white count 15. Hemoglobin, hematocrit and platelet count are within normal limit. MRCP revealed acute cholecystitis, no evidence of acute cholelithiasis, and left lower lobe atelectasis versus infiltrate. I did review the echocardiographic study which revealed normal ventricular size, normal wall motion, and normal ejection fraction. ASSESSMENT: Acute calculous cholecystitis. RECOMMENDATIONS: Continue current IV Flagyl and IV Zosyn. The patient is cleared to undergo either surgical or endoscopic intervention. Yovany Cobian MD
[2017-10-04] MEDS: Piperacill/Tazo 3.375gm in Dex 3.375 GM/50 ML BAG IVPB SCH ×5 (00:44→17:18)
[2017-10-04] MEDS: metroNIDAZOLE IV 500 mg/100 ml 500 MG/100 ML BAG IVPB SCH ×3 (05:49→21:38)
[2017-10-04] MEDS ORDERED: Bupivacaine 0.25% 20 ML INJ IJ ONE (07:29)
--- NOTE | 2017-10-04 07:29 | CP.PCM.PN ---
<Emiliana Heard - Last Filed: 10/04/17 19:35> Subjective - Date & Time of Evaluation Date of Evaluation: 10/04/17 Time of Evaluation: 03:51 - Subjective Subjective: PGY-1 Medicine Progress Note for hospitalist Dr. 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 He had just returned from surgery. Nurse reported no overnight events. Patient reported no new acute problems. Complained of abdominal pain on exertion and movement, none when lying still. Denies nausea, vomiting, constipation, diarrhea. Objective - Vital Signs/Intake and Output Vital Signs (last 24 hours): Temp Pulse Resp BP Pulse Ox 98.2 F 60 20 122/60 97 10/03/17 23:42 10/03/17 23:42 10/03/17 23:42 10/03/17 23:42 10/03/17 23:42 Intake and Output: 10/04/17 10/04/17 06:59 18:59 Intake Total 1002 Balance 1002 - Medications Medications: Current Medications Albuterol/Ipratropium (Duoneb 3 Mg/0.5 Mg (3 Ml) Ud) 3 ml INH RQ6 PRN PRN Reason: Shortness of Breath Metronidazole (Flagyl) 500 mg in 100 mls @ 100 mls/hr IVPB Q8H ALIZA PRN Reason: Protocol Last Admin: 10/04/17 05:49 Dose: 100 mls/hr Sodium Chloride (Sodium Chloride 0.9%) 1,000 mls @ 102 mls/hr IV .Q9H49M [facility] Last Admin: 10/03/17 22:14 Dose: Not Given Piperacillin Sod/Tazobactam Sod (Zosyn 3.375 Gm Iv Premix) 3.375 gm in 50 mls @ 200 mls/hr IVPB Q6 ALIZA PRN Reason: Protocol Last Admin: 10/04/17 05:51 Dose: 200 mls/hr Ketorolac Tromethamine (Toradol) 30 mg IVP Q6 PRN PRN Reason: Pain, severe (8-10) Last Admin: 10/02/17 04:00 Dose: 30 mg Ketorolac Tromethamine (Toradol) 15 mg IVP Q6 PRN PRN Reason: Pain, moderate (4-7) Pantoprazole Sodium (Protonix Inj) 40 mg IVP DAILY [facility] Last Admin: 10/03/17 10:33 Dose: 40 mg Saccharomyces Boulardii (Florastor) 250 mg PO BID [facility] Last Admin: 10/03/17 18:24 Dose: 250 mg - Labs Labs: 10/03/17 21:05 10/03/17 21:05 PT 12.7 SECONDS (9.7-12.2) H 10/01/17 11:12 INR 1.2 10/01/17 11:12 APTT 38 SECONDS (21-34) H 10/01/17 11:12 - Constitutional Appears: Well, Non-toxic, No Acute Distress - Head Exam Head Exam: ATRAUMATIC, NORMOCEPHALIC - Eye Exam Eye Exam: EOMI, Normal appearance. absent: Periorbital swelling, Scleral icterus - ENT Exam ENT Exam: Mucous Membranes Moist, Normal Exam - Respiratory Exam Respiratory Exam: Clear to Ausculation Bilateral, NORMAL BREATHING PATTERN. absent: Rales, Rhonchi, Wheezes Additional comments: resisted deep inspiration - Cardiovascular Exam Cardiovascular Exam: REGULAR RHYTHM, +S1, +S2. absent: Gallop, Rubs, Murmur - GI/Abdominal Exam GI & Abdominal Exam: Guarding, Soft, Tenderness, Normal Bowel Sounds. absent: Distended, Rigid, Hernia, Rebound Additional comments: bulb drain in place, draining serosanguinous fluid bandages across upper abdomen at surgical incision sites c/d/i, non erythematous , non edematous tenderness to light palpation across upper abdomen - Extremities Exam Extremities Exam: Full ROM, Normal Capillary Refill, Normal Inspection. absent : Joint Swelling, Pedal Edema Additional comments: peripheral pulses bilaterally 3+ (radial, DP) IV on both arms, good flow SCDs ordered, not using - Neurological Exam Neurological Exam: Alert, Awake, CN II-XII Intact, Normal Gait, Oriented x3 - Psychiatric Exam Psychiatric exam: Normal Affect, Normal Mood - Skin Skin Exam: Dry, Intact, Normal Color, Warm Assessment and Plan (1) Acute calculous cholecystitis Status: Acute (2) Pneumonia Status: Resolved (3) Prophylactic measure Status: Acute - Assessment and Plan (Free Text) Plan: (1) Acute calculous cholecystitis Assessment & Plan: Abd US (10/01) Cholelithiasis and sludge in the gallbladder with associated gallbladder wall thickening measuring up to 4mm as well as associated gallbladder wall edema. MRCP (10/03) Acute cholecystitis, left lower lobe atelectasis versus infiltrate in very small effusion. Distended gallbladder with minimal cholelithiasis with calculi seen in the dependent gallbladder as well as lodged within the gallbladder neck. Associated gall bladder wall thickening/edema and mild pericholecystic fluid is evident. WBC trending down. Today: 13.8. Trend: 15.0, 16.4, 20.7 GI consulted: Dr. Olmos - meseret appreciated - agree with plan: antibiotic therapy, IVF hydration, supportive care - Monitor LFTs - Signed off (10/03) ID consulted: Dr. Alan carl appreciated - cont IV Zosyn - urine culture (10/01) no growth - final - blood culture (10/01) no growth - preliminary Surgery consulted: Dr. Chari carl appreciated - Partial cholecystectomy (10/04) POD #0. - Percocet 1 tab po q4h prn - ECHO (10/01) no acute hemorrhage. cleared for surgery per Dr. Cobian - Regular diet Medications: - Zosyn 3.375 gm IV Q6H (10/02 Day 3) - Metronidazole 500 mg IV Q8H (10/01 Day 4) - NS 1L @ 102mls/hr q9h49m Status: Acute (2) Pneumonia Assessment & Plan: CXR (10/01) Persistent dense rounded consolidative opacity at the left lung base concerning for underlying infiltrate. Adjacent small left pleural effusion. Diagnosed with LLL PNA on 09/20/17. Completed course of Azithromycin on 09/24. CTAB, asymptomatic during present visit. Probably improvement on clinical symptoms, lagging improvement on imaging. Status: Resolved (3) Prophylactic measure Assessment & Plan: - SCDs - not using - Protonix 40mg IV daily - Florastor 250mg PO bid - Percocet 1 tab po q4h prn per surgery - Morphine 2mg IV q4h prn - Duoneb 3mL IH q6h PRN - Regular diet per surgery Status: Acute Emiliana Heard PGY-1. Case discussed with Dr. Babb. <Christina Babb V - Last Filed: 10/05/17 05:06> Objective - Vital Signs/Intake and Output Vital Signs (last 24 hours): Temp Pulse Resp BP Pulse Ox 99.9 F H 70 20 108/64 96 10/05/17 00:00 10/05/17 00:00 10/05/17 00:00 10/05/17 00:00 10/05/17 00:00 Intake and Output: 10/04/17 10/05/17 18:59 06:59 Intake Total 2212 1320 Output Total 5 100 Balance 2207 1220 - Medications Medications: Current Medications Albuterol/Ipratropium (Duoneb 3 Mg/0.5 Mg (3 Ml) Ud) 3 ml INH RQ6 PRN PRN Reason: Shortness of Breath Metronidazole (Flagyl) 500 mg in 100 mls @ 100 mls/hr IVPB Q8H ALIZA PRN Reason: Protocol Last Admin: 10/05/17 04:15 Dose: 100 mls/hr Sodium Chloride (Sodium Chloride 0.9%) 1,000 mls @ 102 mls/hr IV .Q9H49M [facility] Last Admin: 10/05/17 04:19 Dose: Not Given Piperacillin Sod/Tazobactam Sod (Zosyn 3.375 Gm Iv Premix) 3.375 gm in 50 mls @ 200 mls/hr IVPB Q6 ALIZA PRN Reason: Protocol Last Admin: 10/05/17 00:56 Dose: 200 mls/hr Morphine Sulfate (Morphine) 2 mg IVP Q4 PRN PRN Reason: Pain, moderate (4-7) Oxycodone/Acetaminophen (Percocet 5/325 Mg Tab) 1 tab PO Q4H PRN PRN Reason: Pain, MILD(1-3) Stop: 10/07/17 11:12 Pantoprazole Sodium (Protonix Inj) 40 mg IVP DAILY [facility] Last Admin: 10/04/17 09:01 Dose: Not Given Saccharomyces Boulardii (Florastor) 250 mg PO BID [facility] Last Admin: 10/04/17 17:10 Dose: 250 mg - Labs Labs: 10/03/17 21:05 10/03/17 21:05 PT 12.7 SECONDS (9.7-12.2) H 10/01/17 11:12 INR 1.2 10/01/17 11:12 APTT 38 SECONDS (21-34) H 10/01/17 11:12 Attending/Attestation - Attestation I have personally seen and examined this patient.: Yes I have fully participated in the care of the patient.: Yes I have reviewed all pertinent clinical information, including history, physical exam and plan: Yes Notes (Text): This is late computer entry for 10/04/17. Patient seen, examined, case discussed with medical office specialist. patient's white count is improving from initially 20--->13 today patient is on IV antibiotic therapy. patient was nothing by mouth for OR for laparoscopic cholecystectomy today. Patient seen postop this afternoon. Patient noted he had abdominal pain which is expected given recent procedure. We have order Morphine 2mg IV X1. Surgery has had Percocet as needed for pain. We will continue to monitor him for flatus and bowel movement post procedure. Surgery has advanced his diet to regular post -procedure. 1). Acute Cholecystitis Assessment/plan * General surgery Dr. Menendez on board help appreciated * pending OR * GI Dr. Olmos would on board help appreciated * Has signed off help appreciated * abdominal ultrasound: Cholelithiasis with sludge in the gallbladder associated with gallbladder wall thickening measuring up to 4 mm as well as underlying gallbladder wall edema. Prominent common bile duct measuring up to 4.7 mm meters pancreas not well visualized. * MRCP noted for acute cholecystitis. No evidence of choledocholithiasis left lower atelectasis versus infiltrate and very small effusion. * echocardiogram pending read (this is an addendum from the resident note) * Zosyn 3.375 gm IV Q6H active since 10/02/2017 * Metronidiazole 500 mg IV [id number] since 10/01/2017 * IV fluids * Toradol 15 mg IV every 6 for moderate pain when necessary * Toradol 30 mg IV every 6 when necessary severe pain when necessary 2). Hx LLL Pneumonia * See Chest CT report. This was treated as outpatient. patient completed Z-Truman prior.. * As evidence of pneumonia can persist even after effective treatment, this is NOT failure of outpatient treatment: Respiratory Exam is normal, Repeat Chest X Ray should be done in roughly 6 weeks * CT chest dense focal consolidative opacification seen in the left lower lobe measuring 7.52.3 cm with adjacent small left pleural effusion also. Prevascular lymph node measuring 1.5 cm with noted distended gallbladder with associated wall thickening * Please note left lower lobe infiltrate was seen on abdominal obstructive series on September 23 where in he completed Z-Truman as outpatient. * Duonebs PRN shortness of breathe 3). Prophylaxis * Toradol 15 mg IV Q6H PRN Moderate Pain * Toradol 30 mg IV Q6H PRN Severe Pain * Protonix 40 mg IV 1x/day * Florastor 250 mg PO 2x/day Plan: patient is underwent Lap Telma today for acute cholecystitis. Patient is on IV antibiotics that will help cover acute cholecystitis. Patient is not symptomatic of pneumonia and noted it was the previous obstructive series x- ray on September 23 where in he completed outpatient therapy.
[2017-10-04] MEDS ORDERED: ceFAZolin IV 2 gm in Dextrose 2 GM/50 ML BAG IVPB ONE (07:30)
[2017-10-04] MEDS ORDERED: Propofol 10 mg/ml Inj (20 ML) ONE (07:30)
[2017-10-04] MEDS ORDERED: Lidocaine/Epinephrine 1% 1:100000 10 ML IJ ONE (07:30)
[2017-10-04] MEDS ORDERED: Midazolam 2 MG/2 ML VIAL ONE (07:30)
[2017-10-04] MEDS: Sodium Chloride 0.9% 1,000 ML IV SCH ×3 (08:32→18:55)
[2017-10-04] MEDS: Saccharomyces Boulardi 250 mg Cap PO SCH ×2 (09:01→17:10)
[2017-10-04] MEDS ORDERED: Neostigmine Methylsulfate 3mg/3ml Syringe IV ONE (10:33)
[2017-10-04] MEDS ORDERED: Oxycodone/Acetaminophen 5/325 mg Tab PO PRN (11:11)
--- NOTE | 2017-10-04 11:14 | PCM.SURG1 ---
Surgeon's Initial Post Op Note - Surgeon's Notes Surgeon: Dr. Menendez Grain I Farmworker: Dr. 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
[2017-10-04] MEDS: HYDROmorphone 0.5 mg/0.5 ml ISec IVP PRN ×2 (11:28→11:57)
[2017-10-04 14:11] VITALS: RESP 20
--- NOTE | 2017-10-04 18:40 | CARD ---
APPROVED REPORT Date of service: 10/03/2017 EXAM: Two-dimensional and M-mode echocardiogram with Doppler and color Doppler. Other Information Quality : GoodRhythm : INDICATION Abnormal EKG/Arrhythmia Pre-Op Chest Pain 2D DIMENSIONS IVSd1.0 (0.7-1.1cm)LVDd4.8 (3.9-5.9cm) PWd0.8 (0.7-1.1cm)LVDs2.8 (2.5-4.0cm) FS (%) 41.1 %LVEF (%)71.9 (>50%) M-Mode DIMENSIONS RVDd1.30 (2.1-3.2cm)Left Atrium (MM)3.80 (2.5-4.0cm) IVSd0.78 (0.7-1.1cm)Aortic Root3.04 (2.2-3.7cm) LVDd5.99 (4.0-5.6cm)Aortic Cusp Exc.1.99 (1.5-2.0cm) PWd1.17 (0.7-1.1cm)FS (%) 46 % LVDs3.25 (2.0-3.8cm)LVEF (%)72 (>50%) Mitral Valve MV E Vjieookx14.8cm/sMV A Zcnxlgxv86.7cm/sE/A ratio1.3 TDI E/Lateral E'0.0E/Medial E'0.0 Tricuspid Valve TR Peak [id number]/sTR Peak [id number] LEFT VENTRICLE The Left Ventricle is mildly dilated. There is normal left ventricular wall thickness. Left ventricle systolic function is normal. The Ejection Fraction is >70%. There is normal LV segmental wall motion. The left ventricular diastolic function is normal. RIGHT VENTRICLE The right ventricle is normal size. There is normal right ventricular wall thickness. The right ventricular systolic function is normal. ATRIA The left atrium size is normal. The right atrium size is normal. The interatrial septum is intact with no evidence for an atrial septal defect. AORTIC VALVE The aortic valve is normal in structure. No aortic regurgitation is present. There is no aortic valvular stenosis. There is no aortic valvular vegetation. MITRAL VALVE The mitral valve is normal in structure. There is no evidence of mitral valve prolapse. There is no mitral valve stenosis. Mitral regurgitation is mild. TRICUSPID VALVE The tricuspid valve is normal in structure. There is mild tricuspid regurgitation. Right ventricular systolic pressure is estimated at less than 30 mmHg. There is mild pulmonary hypertension. PULMONIC VALVE The pulmonic valve is not well visualized. There is mild pulmonic valvular regurgitation. GREAT VESSELS The aortic root is normal in size. PERICARDIAL EFFUSION There is no significant pericardial effusion. <Conclusion> Left ventricle systolic function is normal. The Ejection Fraction is >70%. No aortic regurgitation is present. Mitral regurgitation is mild. There is mild tricuspid regurgitation. There is mild pulmonary hypertension. There is mild pulmonic valvular regurgitation.
--- NOTE | 2017-10-04 22:39 | PN ---
DATE: 10/04/2017 FOLLOWUP SUBJECTIVE: The patient underwent robotic laparoscopic cholecystectomy. He denies any chest pain. PHYSICAL EXAMINATION: VITAL SIGNS: Blood pressure 146/71, heart rate 72, temperature 97.9, respirations 20. HEENT: Normocephalic. CHEST: Clear. HEART: S1 and S2 are regular. EXTREMITIES: No edema. ASSESSMENT: Status post robotic laparoscopic cholecystectomy for calculous cholecystitis. RECOMMENDATIONS: Continue current IV Flagyl and IV Zosyn. Obtain 12-lead EKG postoperatively. Obtain basic chemistries tomorrow morning. Yovany Cobian MD
[2017-10-05] MEDS: Piperacill/Tazo 3.375gm in Dex 3.375 GM/50 ML BAG IVPB SCH ×5 (00:56→23:47)
[2017-10-05] MEDS: metroNIDAZOLE IV 500 mg/100 ml 500 MG/100 ML BAG IVPB SCH ×3 (04:15→21:10)
[2017-10-05] MEDS: Sodium Chloride 0.9% 1,000 ML IV SCH ×3 (04:19→20:00)
--- NOTE | 2017-10-05 06:50 | OP ---
PROCEDURE DATE: 10/04/2017 PREOPERATIVE DIAGNOSES: 1. Acute cholecystitis. 2. Cholelithiasis. 3. Abdominal pain and leukocytosis. POSTOPERATIVE DIAGNOSES: 1. Acute on chronic phlegmonous necrotizing cholecystitis. 2. Gallbladder abscess. 3. Extensive postinfectious adhesions. PROCEDURES DONE: 1. Robotic subtotal cholecystectomy. 2. Robotic drainage and aspiration of gallbladder abscess. 3. Robotic extensive lysis of adhesions. SURGEON: The procedure was done by Dr. Shon patel. SENIOR HARDWARE ENGINEER: VLAD Hinton and Isaias Olivera DO, PGY-2 resident. TYPE OF ANESTHESIA: General endotracheal tube anesthesia. ESTIMATED BLOOD LOSS: Around 100 mL. DRAIN: A 19-[place] Islander Rohan drain was placed. COMPLICATIONS: None. INTRAOPERATIVE FINDINGS: The patient had acute on chronic phlegmonous necrotizing gangrenous cholecystitis with gallbladder abscess with extensive postinfectious and postinflammatory adhesion, and it took approximately 60 to 80 minutes extra for extensive lysis of adhesion to complete the procedure. The gallbladder wall thickening was approximately 1 cm and was extremely thick, edematous, and necrosed wall. DESCRIPTION OF PROCEDURE: On intraoperative steps, this is a 36-year-old male who was diagnosed with acute on chronic cholecystitis with the gallstone stuck at the neck of the gallbladder with leukocytosis, and after medical clearance, the patient was consented for laparoscopic-assisted robotic cholecystectomy, possible open, brought to the OR, placed supine on the operating table. After induction of the anesthesia, the abdomen was prepped and draped in the usual sterile fashion, and supraumbilical transverse incision was made after incising the skin, subcutaneous tissue, and the fascia. Another three 8 mm port was placed in upper abdomen. After that, robot was brought in, camera arm as well arm 1 and arm 2 were docked, and gallbladder appeared to be extremely thickened, edematous, inflamed, and covered with phlegmon of omentum and colon. First extensive lysis of adhesion was done to identify the gallbladder, and the gallbladder appeared to be hyperemic and necrosed, and gallbladder was aspirated. The purulent fluid was aspirated, and then the gallbladder was retracted cranially. The Calot's triangle appeared to be extremely thickened, edematous, and infundibulum was stuck to the common bile duct. Now, the top-down approach was done and subtotal cholecystectomy was done. The stone from the infundibulum was completely evacuated. The suction-irrigation of the infundibulum was done to make sure there is no stone segment left, and then the pouch of the infundibulum was sutured with 0 V-Loc PDS continuous suture in a two layer, and a 19-[place] Islander Rohan drain was placed, and ____. All the instruments were taken out. All the ports were taken out under vision. Pneumo was deflated. Umbilical port site was closed in two layers, the fascia with 0 Vicryl interrupted suture, skin with 4-0 Monocryl, and dry sterile dressing was applied. The patient tolerated the procedure well. Count of the instrument and gauze was correct. There was no apparent complication. The patient was extubated in the OR and sent to the postanesthesia care unit in stable condition. Jayden Menendez MD
[2017-10-05 07:19] LABS: BASO % 0.4 % (0.0-2.0); EOS # 0.2 K/uL (0.0-0.7); EOS % 1.4 % (0.0-4.0); HEMOGLOBIN 13.3 g/dL (12.0-18.0); LYMPH # 1.6 K/uL (1.0-4.3); MEAN CELL VOLUME 83.5 fL (80.0-94.0); MEAN CORPUSCULAR HEMOGLOBIN 28.5 pg (27.0-31.0); MEAN CORPUSCULAR HGB CONC 34.1 g/dL (33.0-37.0); MEAN PLATELET VOLUME 9.4 fL (7.2-11.7); MONO # 1.3 K/uL (0.0-0.8); MONO % 9.7 % (0.0-10.0); NEUT # 10.2 K/uL (1.8-7.0); NEUT % 76.5 % (50.0-75.0); RBC 4.67 Mil/uL (4.40-5.90); RED CELL DISTRIBUTION WIDTH 13.3 % (11.5-14.5); WHITE BLOOD COUNT 13.3 K/uL (4.8-10.8)
[2017-10-05 07:35] LABS: ALB/GLOB RATIO 1.2 (1.0-2.1); ALBUMIN 3.1 g/dL (3.5-5.0); ALT/SGPT 51 U/L (21-72); AST/SGOT 42 U/L (17-59); BLOOD UREA NITROGEN 8 mg/dL (9-20); CALCIUM 8.2 mg/dl (8.6-10.4); GFR AFRICAN-AMERICAN > 60; GFR NON-AFRICAN AMERICAN > 60
--- NOTE | 2017-10-05 07:52 | CP.PCM.PN ---
<Flex Burnett M - Last Filed: 10/05/17 21:57> Subjective - Date & Time of Evaluation Date of Evaluation: 10/05/17 Time of Evaluation: 10:25 - Subjective Subjective: PGY [address] Babb Patient seen and examined at beside. Patient lying in bed, no acute distress. Pt is post op day 1 s/p partial cholecystecomy. No overnight events. Patient states he has pain at incision site rating a 6/10. Patient did not want to initially ask for PRN medications. Pt requested some PRN shortly after. Pt is having flatulence, however, no bowel movements yet. Patient denies chest pain, shortness of breath, trouble voiding, headaches, visual changes. Objective - Vital Signs/Intake and Output Vital Signs (last 24 hours): Temp Pulse Resp BP Pulse Ox 98.3 F 87 20 122/74 98 10/05/17 05:00 10/05/17 05:00 10/05/17 05:00 10/05/17 05:00 10/05/17 05:00 Intake and Output: 10/05/17 10/05/17 06:59 18:59 Intake Total 2320 Output Total 150 Balance 2170 - Medications Medications: Current Medications Albuterol/Ipratropium (Duoneb 3 Mg/0.5 Mg (3 Ml) Ud) 3 ml INH RQ6 PRN PRN Reason: Shortness of Breath Metronidazole (Flagyl) 500 mg in 100 mls @ 100 mls/hr IVPB Q8H ALIZA PRN Reason: Protocol Last Admin: 10/05/17 04:15 Dose: 100 mls/hr Sodium Chloride (Sodium Chloride 0.9%) 1,000 mls @ 102 mls/hr IV .Q9H49M [facility] Last Admin: 10/05/17 06:13 Dose: 102 mls/hr Piperacillin Sod/Tazobactam Sod (Zosyn 3.375 Gm Iv Premix) 3.375 gm in 50 mls @ 200 mls/hr IVPB Q6 ALIZA PRN Reason: Protocol Last Admin: 10/05/17 06:12 Dose: 200 mls/hr Morphine Sulfate (Morphine) 2 mg IVP Q4 PRN PRN Reason: Pain, moderate (4-7) Oxycodone/Acetaminophen (Percocet 5/325 Mg Tab) 1 tab PO Q4H PRN PRN Reason: Pain, MILD(1-3) Stop: 10/07/17 11:12 Pantoprazole Sodium (Protonix Inj) 40 mg IVP DAILY [facility] Last Admin: 10/04/17 09:01 Dose: Not Given Saccharomyces Boulardii (Florastor) 250 mg PO BID [facility] Last Admin: 10/04/17 17:10 Dose: 250 mg - Labs Labs: 10/05/17 06:42 10/05/17 06:42 PT 12.7 SECONDS (9.7-12.2) H 10/01/17 11:12 INR 1.2 10/01/17 11:12 APTT 38 SECONDS (21-34) H 10/01/17 11:12 - Constitutional Appears: Well, Non-toxic, No Acute Distress - Head Exam Head Exam: ATRAUMATIC, NORMAL INSPECTION, NORMOCEPHALIC - Eye Exam Eye Exam: EOMI, Normal appearance Pupil Exam: NORMAL ACCOMODATION - ENT Exam ENT Exam: Mucous Membranes Moist - Neck Exam Neck Exam: Full ROM, Normal Inspection - Respiratory Exam Respiratory Exam: Clear to Ausculation Bilateral, NORMAL BREATHING PATTERN. absent: Rales, Rhonchi, Wheezes - Cardiovascular Exam Cardiovascular Exam: +S1, +S2. absent: Irregular Rhythm, Murmur - GI/Abdominal Exam GI & Abdominal Exam: Soft, Normal Bowel Sounds Additional comments: Patient has drain tube in RUQ. Pt has roughly 20 cc of drain. Patient dressing is blood tinged at drainage. Assessment and Plan - Assessment and Plan (Free Text) Assessment: 36 year old male w/ PMHx of pneumonia (09/21/17) presents to ED for abdominal pain : (1) Acute calculous cholecystitis Assessment & Plan: Abd US (10/01) Cholelithiasis and sludge in the gallbladder with associated gallbladder wall thickening measuring up to 4mm as well as associated gallbladder wall edema. MRCP (10/03) Acute cholecystitis, left lower lobe atelectasis versus infiltrate in very small effusion. Distended gallbladder with minimal cholelithiasis with calculi seen in the dependent gallbladder as well as lodged within the gallbladder neck. Associated gall bladder wall thickening/edema and mild pericholecystic fluid is evident. WBC trending down. Today: 13.3. Trend: 13.8, 15.0, 16.4, 20.7 GI consulted: Dr. Olmos - meseret appreciated - agree with plan: antibiotic therapy, IVF hydration, supportive care - Monitor LFTs - Signed off (10/03) ID consulted: Dr. Phillips - meseret appreciated - cont IV Zosyn - urine culture (10/01) no growth - final - blood culture (10/01) no growth - preliminary Surgery consulted: Dr. Marcelino - meseret appreciated - Partial cholecystectomy (10/04) POD #1. - Morphine 2mg Q4 PRN - ECHO (10/01) no acute hemorrhage. cleared for surgery per Dr. Cobian - Regular diet - surgery cleared for D/C, possibly D/C tomorrow pending WBC & pain Medications: - Zosyn 3.375 gm IV Q6H (10/02 Day 3) - Metronidazole 500 mg IV Q8H (10/01 Day 4) - NS 1L @ 102mls/hr q9h49m Status: Acute (2) Pneumonia Assessment & Plan: CXR (10/01) Persistent dense rounded consolidative opacity at the left lung base concerning for underlying infiltrate. Adjacent small left pleural effusion. Diagnosed with LLL PNA on 09/20/17. Completed course of Azithromycin on 09/24. CTAB, asymptomatic during present visit. Probably improvement on clinical symptoms, lagging improvement on imaging. Status: Resolved (3) Prophylactic measure Assessment & Plan: - SCDs - not using - Protonix 40mg IV daily - Florastor 250mg PO bid - Morphine 2mg IV q4h prn - Duoneb 3mL IH q6h PRN - Regular diet per surgery Status: Acute <Christina Babb V - Last Filed: 10/06/17 22:14> Objective - Vital Signs/Intake and Output Vital Signs (last 24 hours): Temp Pulse Resp BP Pulse Ox 98.0 F 62 20 114/71 97 10/06/17 15:07 10/06/17 15:07 10/06/17 15:07 10/06/17 15:07 10/06/17 15:07 Intake and Output: 10/06/17 10/07/17 18:59 06:59 Intake Total 1260 Output Total 20 Balance 1240 - Labs Labs: 10/06/17 07:05 10/06/17 07:05 PT 12.7 SECONDS (9.7-12.2) H 10/01/17 11:12 INR 1.2 10/01/17 11:12 APTT 38 SECONDS (21-34) H 10/01/17 11:12 Attending/Attestation - Attestation I have personally seen and examined this patient.: Yes I have fully participated in the care of the patient.: Yes I have reviewed all pertinent clinical information, including history, physical exam and plan: Yes Notes (Text): This is late computer entry for 10/05/17. Patient seen, examined, case discussed with medical lab tech instructor. Patient's diet advanced by surgery today. patient reports flatus but has not had a bowel movement. Patient has not been asking for pain medications because he is afraid to ask. I did advise him that he has recent surgery and if needs pain medication; he should take pain medication if he needs. Patient seen later this afternoon; reports he can be discharged from their standpoint. We will consider possible discharge tomorrow. 1). Acute Cholecystitis Assessment/plan * General surgery Dr. Menendez on board help appreciated * pending OR * GI Dr. Olmos would on board help appreciated * Has signed off help appreciated * Infectious Disease: Dr Phillips on the case-->help appreciated * Abdominal ultrasound: Cholelithiasis with sludge in the gallbladder associated with gallbladder wall thickening measuring up to 4 mm as well as underlying gallbladder wall edema. Prominent common bile duct measuring up to 4.7 mm meters pancreas not well visualized. * MRCP noted for acute cholecystitis. No evidence of choledocholithiasis left lower atelectasis versus infiltrate and very small effusion. * echocardiogram (10/04/17): left ventricle systolic function is normal EF>70% no aortic regurgitation is present. Mitral regurgitation is mild. official report in the chart * Zosyn 3.375 gm IV Q6H active since 10/02/2017 * Metronidiazole 500 mg IV [id number] since 10/01/2017 * IV fluids 2). Hx LLL Pneumonia * See Chest CT report. This was treated as outpatient. patient completed Z-Truman prior.. * As evidence of pneumonia can persist even after effective treatment, this is NOT failure of outpatient treatment: Respiratory Exam is normal, Repeat Chest X Ray should be done in roughly 6 weeks * CT chest dense focal consolidative opacification seen in the left lower lobe measuring 7.52.3 cm with adjacent small left pleural effusion also. Prevascular lymph node measuring 1.5 cm with noted distended gallbladder with associated wall thickening * Please note left lower lobe infiltrate was seen on abdominal obstructive series on September 23 where in he completed Z-Truman as outpatient. * Duonebs PRN shortness of breathe 3). Prophylaxis * Protonix 40 mg IV 1x/day * Florastor 250 mg PO 2x/day Plan: patient is POD #1 Lap Telma today for acute cholecystitis. Patient is on IV antibiotics that will help cover acute cholecystitis. Patient will need pain medication as needed and advised to use.
[2017-10-05] MEDS: Saccharomyces Boulardi 250 mg Cap PO SCH ×2 (10:11→17:27)
[2017-10-05] MEDS: Oxycodone/Acetaminophen 5/325 mg Tab PO PRN ×2 (11:45→18:35)
--- NOTE | 2017-10-05 13:11 | CP.PCM.PN ---
Subjective - Date & Time of Evaluation Date of Evaluation: 10/05/17 Time of Evaluation: 11:25 - Subjective Subjective: Patient seen and examined. No acute events over night. Tolerating regular diet. Objective - Vital Signs/Intake and Output Vital Signs (last 24 hours): Temp Pulse Resp BP Pulse Ox 98.5 F 67 20 113/68 67 L 10/05/17 08:00 10/05/17 08:00 10/05/17 08:00 10/05/17 08:00 10/05/17 08:00 Intake and Output: 10/05/17 10/05/17 06:59 18:59 Intake Total 2320 Output Total 150 Balance 2170 - Medications Medications: Current Medications Albuterol/Ipratropium (Duoneb 3 Mg/0.5 Mg (3 Ml) Ud) 3 ml INH RQ6 PRN PRN Reason: Shortness of Breath Metronidazole (Flagyl) 500 mg in 100 mls @ 100 mls/hr IVPB Q8H ALIZA PRN Reason: Protocol Last Admin: 10/05/17 04:15 Dose: 100 mls/hr Sodium Chloride (Sodium Chloride 0.9%) 1,000 mls @ 102 mls/hr IV .Q9H49M [facility] Last Admin: 10/05/17 06:13 Dose: 102 mls/hr Piperacillin Sod/Tazobactam Sod (Zosyn 3.375 Gm Iv Premix) 3.375 gm in 50 mls @ 200 mls/hr IVPB Q6 ALIZA PRN Reason: Protocol Last Admin: 10/05/17 11:51 Dose: 200 mls/hr Morphine Sulfate (Morphine) 2 mg IVP Q4 PRN PRN Reason: Pain, moderate (4-7) Oxycodone/Acetaminophen (Percocet 5/325 Mg Tab) 1 tab PO Q4H PRN PRN Reason: Pain, MILD(1-3) Stop: 10/07/17 11:12 Last Admin: 10/05/17 11:45 Dose: 1 tab Pantoprazole Sodium (Protonix Inj) 40 mg IVP DAILY [facility] Last Admin: 10/05/17 10:11 Dose: 40 mg Saccharomyces Boulardii (Florastor) 250 mg PO BID [facility] Last Admin: 10/05/17 10:11 Dose: 250 mg - Labs Labs: 10/05/17 06:42 10/05/17 06:42 PT 12.7 SECONDS (9.7-12.2) H 10/01/17 11:12 INR 1.2 10/01/17 11:12 APTT 38 SECONDS (21-34) H 10/01/17 11:12 - Constitutional Appears: No Acute Distress - Head Exam Head Exam: NORMOCEPHALIC - Eye Exam Eye Exam: Normal appearance - ENT Exam ENT Exam: Mucous Membranes Moist - Respiratory Exam Respiratory Exam: NORMAL BREATHING PATTERN - Cardiovascular Exam Cardiovascular Exam: +S1, +S2 - GI/Abdominal Exam GI & Abdominal Exam: Soft, Tenderness - Neurological Exam Neurological Exam: Alert, Awake, Oriented x3 - Psychiatric Exam Psychiatric exam: Normal Mood - Skin Skin Exam: Dry, Intact, Warm Assessment and Plan - Assessment and Plan (Free Text) Assessment: 36M s/p robotic partial cholecystectomy POD1 Plan: Clear for d/c from surgical standpoint C/w Analgesics F/u with Dr. Menendez in 7-10 days Drain will remain in place until office follow up D/w Dr. Shon Lozano PGY3
--- NOTE | 2017-10-05 17:17 | CP.PCM.PN ---
Subjective - Date & Time of Evaluation Date of Evaluation: 10/05/17 Time of Evaluation: 08:00 - Subjective Subjective: afeb s/p cholecystectomy drain in place tolerating diet Objective - Vital Signs/Intake and Output Vital Signs (last 24 hours): Temp Pulse Resp BP Pulse Ox 98 F 64 20 120/70 97 10/05/17 16:00 10/05/17 16:00 10/05/17 16:00 10/05/17 16:00 10/05/17 16:00 Intake and Output: 10/05/17 10/05/17 06:59 18:59 Intake Total 2320 1215 Output Total 150 Balance 2170 1215 - Medications Medications: Current Medications Albuterol/Ipratropium (Duoneb 3 Mg/0.5 Mg (3 Ml) Ud) 3 ml INH RQ6 PRN PRN Reason: Shortness of Breath Metronidazole (Flagyl) 500 mg in 100 mls @ 100 mls/hr IVPB Q8H ALIZA PRN Reason: Protocol Last Admin: 10/05/17 13:41 Dose: 100 mls/hr Sodium Chloride (Sodium Chloride 0.9%) 1,000 mls @ 102 mls/hr IV .Q9H49M [facility] Last Admin: 10/05/17 06:13 Dose: 102 mls/hr Piperacillin Sod/Tazobactam Sod (Zosyn 3.375 Gm Iv Premix) 3.375 gm in 50 mls @ 200 mls/hr IVPB Q6 ALIZA PRN Reason: Protocol Last Admin: 10/05/17 11:51 Dose: 200 mls/hr Morphine Sulfate (Morphine) 2 mg IVP Q4 PRN PRN Reason: Pain, moderate (4-7) Oxycodone/Acetaminophen (Percocet 5/325 Mg Tab) 1 tab PO Q4H PRN PRN Reason: Pain, MILD(1-3) Stop: 10/07/17 11:12 Last Admin: 10/05/17 11:45 Dose: 1 tab Pantoprazole Sodium (Protonix Ec Tab) 40 mg PO DAILY [facility] Saccharomyces Boulardii (Florastor) 250 mg PO BID [facility] Last Admin: 10/05/17 10:11 Dose: 250 mg - Labs Labs: 10/05/17 06:42 10/05/17 06:42 PT 12.7 SECONDS (9.7-12.2) H 10/01/17 11:12 INR 1.2 10/01/17 11:12 APTT 38 SECONDS (21-34) H 10/01/17 11:12 - Constitutional Appears: Non-toxic, Chronically Ill - Head Exam Head Exam: NORMOCEPHALIC - Eye Exam Eye Exam: PERRL - ENT Exam ENT Exam: Mucous Membranes Dry - Neck Exam Neck Exam: absent: Lymphadenopathy - Respiratory Exam Respiratory Exam: Decreased Breath Sounds - Cardiovascular Exam Cardiovascular Exam: REGULAR RHYTHM - GI/Abdominal Exam GI & Abdominal Exam: Distended Assessment and Plan (1) Cholecystitis Status: Acute (2) Pneumonia Status: Resolved - Assessment and Plan (Free Text) Assessment: cont rx for pneumonia Plan: folllow up cxr
--- NOTE | 2017-10-05 21:53 | PN ---
DATE: 10/05/2017 SUBJECTIVE: The patient is tolerating solid diet. He denies any chest pain. PHYSICAL EXAMINATION: VITAL SIGNS: Blood pressure 120/70, heart rate 64, temperature 98, respirations 20. HEENT: Normocephalic. CHEST: Clear. HEART: S1 and S2 are regular. EXTREMITIES: No edema. LABORATORY DATA: Hemoglobin and hematocrit 15.3 and 39, white count 15.3, platelet count 263,000. SMA-7 is within normal limits except for BUN of 8. ASSESSMENT: 1. Status post subtotal cholecystectomy. 2. Mild hypocalcemia. RECOMMENDATIONS: Continue IV Flagyl and IV Zosyn. EKG was ordered yesterday but it is not available on the [employer] database yet, and I will follow up this EKG. The case was discussed with Dr. Babb. Yovany Cobian MD 10/05/2017 16:50:53
[2017-10-06] MEDS: Sodium Chloride 0.9% 1,000 ML IV SCH ×2 (02:00→10:17)
[2017-10-06] MEDS: metroNIDAZOLE IV 500 mg/100 ml 500 MG/100 ML BAG IVPB SCH ×2 (04:16→13:24)
[2017-10-06] MEDS: Piperacill/Tazo 3.375gm in Dex 3.375 GM/50 ML BAG IVPB SCH ×3 (05:23→17:52)
[2017-10-06 07:29] LABS: BASO # 0.1 K/uL (0.0-0.2); EOS # 0.4 K/uL (0.0-0.7); EOS % 3.8 % (0.0-4.0); HEMOGLOBIN 12.8 g/dL (12.0-18.0); LYMPH # 1.3 K/uL (1.0-4.3); LYMPH % 13.7 % (20.0-40.0); MEAN CORPUSCULAR HEMOGLOBIN 28.6 pg (27.0-31.0); MEAN CORPUSCULAR HGB CONC 34.1 g/dL (33.0-37.0); MEAN PLATELET VOLUME 9.1 fL (7.2-11.7); MONO # 0.8 K/uL (0.0-0.8); MONO % 8.9 % (0.0-10.0); NEUT # 6.8 K/uL (1.8-7.0); NEUT % 72.6 % (50.0-75.0); RBC 4.48 Mil/uL (4.40-5.90); RED CELL DISTRIBUTION WIDTH 13.4 % (11.5-14.5); WHITE BLOOD COUNT 9.4 K/uL (4.8-10.8)
--- NOTE | 2017-10-06 07:35 | CP.PCM.DIS ---
<Emiliana Heard - Last Filed: 10/06/17 17:36> Provider - Provider Date of Admission: 10/03/17 17:25 Attending physician: Amari Pandey MD Time Spent in preparation of Discharge (in minutes): 60 Diagnosis - Discharge Diagnosis (1) Acute calculous cholecystitis Status: Acute (2) Pneumonia Status: Resolved (3) Prophylactic measure Status: Acute Hospital Course - Lab Results Lab Results: Micro Results 10/01/17 11:12 Blood Blood Culture - Preliminary NO GROWTH AFTER 4 DAYS 10/01/17 11:12 Blood Blood Culture - Preliminary NO GROWTH AFTER 4 DAYS 10/01/17 16:44 Urine,Clean Catch Urine Culture - Final No Growth (<1,000 CFU/ML) Most Recent Lab Values WBC 9.4 K/uL (4.8-10.8) 10/06/17 07:05 RBC 4.48 Mil/uL (4.40-5.90) 10/06/17 07:05 Hgb 12.8 g/dL (12.0-18.0) 10/06/17 07:05 Hct 37.6 % (35.0-51.0) 10/06/17 07:05 MCV 84.0 fL (80.0-94.0) 10/06/17 07:05 MCH 28.6 pg (27.0-31.0) 10/06/17 07:05 MCHC 34.1 g/dL (33.0-37.0) 10/06/17 07:05 RDW 13.4 % (11.5-14.5) 10/06/17 07:05 Plt Count 256 K/uL (130-400) 10/06/17 07:05 MPV 9.1 fL (7.2-11.7) 10/06/17 07:05 Neut % (Auto) 72.6 % (50.0-75.0) 10/06/17 07:05 Lymph % (Auto) 13.7 % (20.0-40.0) L 10/06/17 07:05 [place] % (Auto) 8.9 % (0.0-10.0) 10/06/17 07:05 Eos % (Auto) 3.8 % (0.0-4.0) 10/06/17 07:05 Baso % (Auto) 1.0 % (0.0-2.0) 10/06/17 07:05 Neut # (Auto) 6.8 K/uL (1.8-7.0) 10/06/17 07:05 Lymph # (Auto) 1.3 K/uL (1.0-4.3) 10/06/17 07:05 [place] # (Auto) 0.8 K/uL (0.0-0.8) 10/06/17 07:05 Eos # (Auto) 0.4 K/uL (0.0-0.7) 10/06/17 07:05 Baso # (Auto) 0.1 K/uL (0.0-0.2) 10/06/17 07:05 Neutrophils % (Manual) 92 % (50-75) H 10/01/17 07:48 Lymphocytes % (Manual) 4 % (20-40) L 10/01/17 07:48 Monocytes % (Manual) 3 % (0-10) 10/01/17 07:48 Basophils % (Manual) 1 % (0-2) 10/01/17 07:48 Toxic Granulation Present 10/01/17 07:48 Platelet Estimate Normal (NORMAL) 10/01/17 07:48 Large Platelets Present 10/01/17 07:48 Anisocytosis (manual) Slight 10/01/17 07:48 PT 12.7 SECONDS (9.7-12.2) H 10/01/17 11:12 INR 1.2 10/01/17 11:12 APTT 38 SECONDS (21-34) H 10/01/17 11:12 Sodium 140 mmol/L (132-148) 10/05/17 06:42 Potassium 3.8 mmol/L (3.6-5.2) 10/05/17 06:42 Chloride 104 mmol/L (98-107) 10/05/17 06:42 Carbon Dioxide 26 mmol/L (22-30) 10/05/17 06:42 Anion Gap 13 (10-20) 10/05/17 06:42 BUN 8 mg/dL (9-20) L 10/05/17 06:42 Creatinine 0.8 mg/dL (0.8-1.5) 10/05/17 06:42 Est GFR ( Amer) > 60 10/05/17 06:42 Est GFR (Non-Af Amer) > 60 10/05/17 06:42 Random Glucose 101 mg/dL (75-110) 10/05/17 06:42 Calcium 8.2 mg/dl (8.6-10.4) L 10/05/17 06:42 Phosphorus 3.4 mg/dL (2.5-4.5) 10/05/17 06:42 Magnesium 1.8 mg/dL (1.6-2.3) 10/05/17 06:42 Total Bilirubin 0.7 mg/dL (0.2-1.3) 10/05/17 06:42 AST 42 U/L (17-59) 10/05/17 06:42 ALT 51 U/L (21-72) 10/05/17 06:42 Alkaline Phosphatase 65 U/L (38-126) 10/05/17 06:42 Total Protein 5.9 g/dL (6.3-8.3) L 10/05/17 06:42 Albumin 3.1 g/dL (3.5-5.0) L 10/05/17 06:42 Globulin 2.7 gm/dL (2.2-3.9) 10/05/17 06:42 Albumin/Globulin Ratio 1.2 (1.0-2.1) 10/05/17 06:42 Lipase 25 U/L (23-300) 10/01/17 07:48 Urine Color Yellow (YELLOW) 10/01/17 16:44 Urine Clarity Clear (Clear) 10/01/17 16:44 Urine pH 6.0 (5.0-8.0) 10/01/17 16:44 Ur Specific Rewey 1.010 (1.003-1.030) 10/01/17 16:44 Urine Protein Negative mg/dL (NEGATIVE) 10/01/17 16:44 Urine Glucose (UA) Normal mg/dL (Normal) 10/01/17 16:44 Urine Ketones 1+ mg/dL (NEGATIVE) H 10/01/17 16:44 Urine Blood 1+ (NEGATIVE) H 10/01/17 16:44 Urine Nitrate Negative (NEGATIVE) 10/01/17 16:44 Urine Bilirubin Negative (NEGATIVE) 10/01/17 16:44 Urine Urobilinogen Normal mg/dL (0.2-1.0) 10/01/17 16:44 Ur Leukocyte Esterase Neg Rodrigo/uL (Negative) 10/01/17 16:44 Urine WBC (Auto) 1 /hpf (0-5) 10/01/17 16:44 Urine RBC (Auto) 2 /hpf (0-3) 10/01/17 16:44 Influenza Typ A,B (EIA) Negative for flu a/b (NEGATIVE) 10/01/17 12:29 H.influenzae Type B Ag Negative (NEGATIVE) 10/01/17 16:44 Ur L.pneumophila Ag Negative (NEGATIVE) 10/01/17 16:44 M.pneumoniae IgG Titer 1.56 (<=0.90) H 10/01/17 13:54 Mycoplasma pneumon IgM Negative (NEGATIVE) 10/01/17 11:32 N.meningitidis ACY/W135 Negative (NEGATIVE) 10/01/17 16:44 N.meningi B/E.coli K1 Ag Negative (NEGATIVE) 10/01/17 16:44 Group B Strep Antigen Negative (NEGATIVE) 10/01/17 16:44 S. pneumoniae Antigen Negative (NEGATIVE) 10/01/17 16:44 - Hospital Course Hospital Course: 36 year old male with history of pneumonia (09/21/17, for which he was given azithromycin) presents with 3 weeks of abdominal pain of increasing intensity. Pain is localized to the right upper quadrant. Despite self administration of Advil, patient reported increased pain. He is unable to breath deeply secondary to exacerbation of abdominal pain. Patient had recent ER visit on 09/21/17 with similar symptoms for which he was given Protonix. During that visit he was found to have a distended gall bladder with wall thickening (for which he was instructed to obtain a followup ultrasound. Patient denies nausea, vomiting, sore throat, leg pain/swelling. Abdominal ultrasound found cholelithiasis and sludge within thickened gallbladder. These findings and edema within the gallbladder in conjunction with the clinical findings indicate the presence of cholecystitis. Patient was started on empiric Flagyl and Zosyn. Surgery and GI consultation advised continuation of antibiotics, NPO, IV hydration, monitoring of LFTs, and MRCP. MRCP found caliber of common bile duct to be normal and no sign of choledocolithiasis or biliary ductal dilatation. MRCP confirmed distended gallbladder with minimal cholelithiasis with calculi and pericholecystic fluid. These findings indicated proceeding with robotic, laparoscopic, partial cholecystectomy. Echo was done by cardiology to clear for surgery due to possible new onset RBBB. Echo found normal left ventricular systolic function, with ejection fraction (>70%). Also noted were mild mitral regurgitation, mild tricuspid regurgitation, mild pulmonary hypertension, and mild pulmonic valve regurgitation. Cardiology found no evidence of electrical abnormality and gave clearance for the patient to undergo a cholecystectomy. For his previous diagnosis of pneumonia, the patient finished his regimen of azithromycin prior to this admission. Due to history of pneumonia and presenting pain with deep inspiration, chest x-ray was performed. It captured opacity in base of left lung, indicative of infiltrate and possible lesion; additionally the presence of small pleural effusion was detected. Non-contrast CT was performed with similar findings and consolidative changes within the lingula, which yielded a recommendation for followup to ensure resolution. Diagnosis: Acute Cholecystitis, left LL pneumonia-resolving Patient stable for discharge per Dr. Babb. Patient should additionally take the medications listed below as prescribed: Augmentin 875mg-125mg 1 tab by mouth three times a day Bacid 1 tab by mouth once a day Patient should make an appointment and follow up with PMD at the [facility] ( [address] [place] [address] ). Patient should also follow up with Dr. Menendez in 7-10 days for drain removal. Patient should keep dressings dry and sponge bath until drain is removed. Patient has been given Percocet and can take them as needed for pain. Patient should also get a chest X-ray in one month to confirm resolution of pneumonia. If symptoms should return or worsen, please return to the ED immediately. Instructions discussed with patient who understood and agreed. This is a summary of the hospital course. For more details please refer to the EMR. - Date & Time of H&P Date of H&P: 10/06/17 Time of H&P: 14:35 Discharge Exam - Head Exam Head Exam: ATRAUMATIC, NORMAL INSPECTION, NORMOCEPHALIC - Eye Exam Eye Exam: EOMI, Normal appearance, PERRL. absent: Conjunctival injection - ENT Exam ENT Exam: Mucous Membranes Moist, Normal Exam - Respiratory Exam Respiratory Exam: Clear to PA & Lateral, NORMAL BREATHING PATTERN, UNREMARKABLE. absent: Rales, Rhonchi, Wheezes, Stridor - Cardiovascular Exam Cardiovascular Exam: REGULAR RHYTHM, +S1, +S2. absent: Gallop, Rubs, Systolic Murmur - GI/Abdominal Exam GI & Abdominal Exam: Guarding, Normal Bowel Sounds, Soft, Tenderness. absent: Firm, Rebound, Rigid Additional comments: dressings post op c/d/i. bulb drain in place, draining serosanguineous fluid. tenderness to palpation at surgical site. no erythema, edema - Extremities Exam Extremities exam: full ROM, pedal pulses present Additional comments: full ROM in active and passive. IV removed prior to discharge. peripheral pulses present bilaterally 3+ (radial, DP) - Neurological Exam Neurological exam: Alert, CN II-XII Intact, Normal Gait, Oriented x3, Reflexes Normal - Psychiatric Exam Psychiatric exam: Normal Affect, Normal Mood - Skin Skin Exam: Dry, Intact, Normal Color, Warm Discharge Plan - Discharge Medications Prescriptions: Acidoph/L.bulg/Bif.b/S.thermop [Bacid Probiotic 5%-80%-10%-5%] 1 tab PO DAILY # 30 tab Amoxicillin/Clavulanate [Augmentin 875 MG-125 MG] 1 tab PO Q8H #21 tab - Follow Up Plan Condition: STABLE Disposition: HOME/ ROUTINE Instructions: Pneumonia, Adult (DC), Gallstones (DC), Cholecystitis (DC), Cholecystitis (GEN) Additional Instructions: Patient stable for discharge per Dr. Babb. Patient should additionally take the medications listed below as prescribed: Augmentin 875mg-125mg 1 tab by mouth three times a day Bacid 1 tab by mouth once a day Patient should make an appointment and follow up with PMD at the [facility] ( [address] [place] [address] ). Patient should also follow up with Dr. Menendez in 7-10 days for drain removal. Patient should keep dressings dry and sponge bath until drain is removed. Patient has been given Percocet and can take them as needed for pain. Patient should also get a chest X-ray in one month to confirm resolution of pneumonia. If symptoms should return or worsen, please return to the ED immediately. Instructions discussed with patient who understood and agreed. Paciente estable para el frank por Dr. Babb. El paciente tambin debe marquis los medicamentos que se detallan a continuacin segn lo prescrito: Augmentin 875 mg-125 mg 1 tableta por va oral esther veces al da Bacid 1 lengeta por la boca gracia vez al da El paciente debe hacer gracia yvette y hacer un seguimiento con PMD en [facility] ( [address] [place] [address] ). El paciente tambin debe realizar un seguimiento con el Dr. Menendez en 7-10 orozco para la extraccin del drenaje. El paciente debe mantener los apsitos secos y baar con esponja hasta que se elimine el drenaje. Al paciente se le card administrado Percocet y puede tomarlo segn sea necesario para el dolor. El paciente tambin debe recibir gracia radiografa de trax en un mes para confirmar la resolucin de la neumona. Si los sntomas reaparecen o empeoran, regrese al servicio de urgencias inmediatamente. Instrucciones discutidas con el paciente que entendi y estuvo de acuerdo. Referrals: Jayden Menendez MD [Staff Provider] - <Christina Babb V - Last Filed: 10/06/17 22:22> Provider - Provider Date of Admission: 10/03/17 17:25 Attending physician: Amari Pandey MD Hospital Course - Lab Results Lab Results: Micro Results 10/01/17 11:12 Blood Blood Culture - Final NO GROWTH AFTER 5 DAYS 10/01/17 11:12 Blood Gram Stain - Final TEST NOT PERFORMED 10/01/17 11:12 Blood Blood Culture - Final NO GROWTH AFTER 5 DAYS 10/01/17 11:12 Blood Gram Stain - Final TEST NOT PERFORMED 10/01/17 16:44 Urine,Clean Catch Urine Culture - Final No Growth (<1,000 CFU/ML) Most Recent Lab Values WBC 9.4 K/uL (4.8-10.8) 10/06/17 07:05 RBC 4.48 Mil/uL (4.40-5.90) 10/06/17 07:05 Hgb 12.8 g/dL (12.0-18.0) 10/06/17 07:05 Hct 37.6 % (35.0-51.0) 10/06/17 07:05 MCV 84.0 fL (80.0-94.0) 10/06/17 07:05 MCH 28.6 pg (27.0-31.0) 10/06/17 07:05 MCHC 34.1 g/dL (33.0-37.0) 10/06/17 07:05 RDW 13.4 % (11.5-14.5) 10/06/17 07:05 Plt Count 256 K/uL (130-400) 10/06/17 07:05 MPV 9.1 fL (7.2-11.7) 10/06/17 07:05 Neut % (Auto) 72.6 % (50.0-75.0) 10/06/17 07:05 Lymph % (Auto) 13.7 % (20.0-40.0) L 10/06/17 07:05 [place] % (Auto) 8.9 % (0.0-10.0) 10/06/17 07:05 Eos % (Auto) 3.8 % (0.0-4.0) 10/06/17 07:05 Baso % (Auto) 1.0 % (0.0-2.0) 10/06/17 07:05 Neut # (Auto) 6.8 K/uL (1.8-7.0) 10/06/17 07:05 Lymph # (Auto) 1.3 K/uL (1.0-4.3) 10/06/17 07:05 [place] # (Auto) 0.8 K/uL (0.0-0.8) 10/06/17 07:05 Eos # (Auto) 0.4 K/uL (0.0-0.7) 10/06/17 07:05 Baso # (Auto) 0.1 K/uL (0.0-0.2) 10/06/17 07:05 Neutrophils % (Manual) 92 % (50-75) H 10/01/17 07:48 Lymphocytes % (Manual) 4 % (20-40) L 10/01/17 07:48 Monocytes % (Manual) 3 % (0-10) 10/01/17 07:48 Basophils % (Manual) 1 % (0-2) 10/01/17 07:48 Toxic Granulation Present 10/01/17 07:48 Platelet Estimate Normal (NORMAL) 10/01/17 07:48 Large Platelets Present 10/01/17 07:48 Anisocytosis (manual) Slight 10/01/17 07:48 PT 12.7 SECONDS (9.7-12.2) H 10/01/17 11:12 INR 1.2 10/01/17 11:12 APTT 38 SECONDS (21-34) H 10/01/17 11:12 Sodium 143 mmol/L (132-148) 10/06/17 07:05 Potassium 3.7 mmol/L (3.6-5.2) 10/06/17 07:05 Chloride 105 mmol/L (98-107) 10/06/17 07:05 Carbon Dioxide 28 mmol/L (22-30) 10/06/17 07:05 Anion Gap 14 (10-20) 10/06/17 07:05 BUN 7 mg/dL (9-20) L 10/06/17 07:05 Creatinine 0.8 mg/dL (0.8-1.5) 10/06/17 07:05 Est GFR ( Amer) > 60 10/06/17 07:05 Est GFR (Non-Af Amer) > 60 10/06/17 07:05 Random Glucose 111 mg/dL (75-110) H 10/06/17 07:05 Calcium 8.3 mg/dl (8.6-10.4) L 10/06/17 07:05 Phosphorus 2.8 mg/dL (2.5-4.5) 10/06/17 07:05 Magnesium 1.8 mg/dL (1.6-2.3) 10/06/17 07:05 Total Bilirubin 0.4 mg/dL (0.2-1.3) 10/06/17 07:05 AST 27 U/L (17-59) 10/06/17 07:05 ALT 35 U/L (21-72) 10/06/17 07:05 Alkaline Phosphatase 57 U/L (38-126) 10/06/17 07:05 Total Protein 5.8 g/dL (6.3-8.3) L 10/06/17 07:05 Albumin 3.1 g/dL (3.5-5.0) L 10/06/17 07:05 Globulin 2.8 gm/dL (2.2-3.9) 10/06/17 07:05 Albumin/Globulin Ratio 1.1 (1.0-2.1) 10/06/17 07:05 Lipase 25 U/L (23-300) 10/01/17 07:48 Urine Color Yellow (YELLOW) 10/01/17 16:44 Urine Clarity Clear (Clear) 10/01/17 16:44 Urine pH 6.0 (5.0-8.0) 10/01/17 16:44 Ur Specific Rewey 1.010 (1.003-1.030) 10/01/17 16:44 Urine Protein Negative mg/dL (NEGATIVE) 10/01/17 16:44 Urine Glucose (UA) Normal mg/dL (Normal) 10/01/17 16:44 Urine Ketones 1+ mg/dL (NEGATIVE) H 10/01/17 16:44 Urine Blood 1+ (NEGATIVE) H 10/01/17 16:44 Urine Nitrate Negative (NEGATIVE) 10/01/17 16:44 Urine Bilirubin Negative (NEGATIVE) 10/01/17 16:44 Urine Urobilinogen Normal mg/dL (0.2-1.0) 10/01/17 16:44 Ur Leukocyte Esterase Neg Rodrigo/uL (Negative) 10/01/17 16:44 Urine WBC (Auto) 1 /hpf (0-5) 10/01/17 16:44 Urine RBC (Auto) 2 /hpf (0-3) 10/01/17 16:44 Influenza Typ A,B (EIA) Negative for flu a/b (NEGATIVE) 10/01/17 12:29 H.influenzae Type B Ag Negative (NEGATIVE) 10/01/17 16:44 Ur L.pneumophila Ag Negative (NEGATIVE) 10/01/17 16:44 M.pneumoniae IgG Titer 1.56 (<=0.90) H 10/01/17 13:54 Mycoplasma pneumon IgM Negative (NEGATIVE) 10/01/17 11:32 N.meningitidis ACY/W135 Negative (NEGATIVE) 10/01/17 16:44 N.meningi B/E.coli K1 Ag Negative (NEGATIVE) 10/01/17 16:44 Group B Strep Antigen Negative (NEGATIVE) 10/01/17 16:44 S. pneumoniae Antigen Negative (NEGATIVE) 10/01/17 16:44 Attending/Attestation - Attestation I have personally seen and examined this patient.: Yes I have fully participated in the care of the patient.: Yes I have reviewed all pertinent clinical information, including history, physical exam and plan: Yes Notes (Text): Patient seen, examined and case discussed with day-time resident. Patient reports pain is better controlled. Patient seen upright and smiling. Patient appears more comfortable compared to yesterday. white count has normalized. afebrile. Per surgery standpoint stable for discharge. F/u with Dr. Menendez for drain removal. Per infectious disease, agrees with Augmentin recommendation. Recommends follow- up chest xray to make sure patient's pneumonia has resolved. Patient recommended to establish care at the [facility] since he does not have a primary care doctor and he lives in [place]. Information of clinic including phone number and address provided to the patient. Case management has arranged for transportation for patient upon discharge. Patient has a friend who will be able to help him recover at home. Prescriptions: 1) Augmentin 875-125 1 tab PO Q8H (21 tab) 2) Bacid 1 tab PO daily (30 tabs/0); if patient cannot afford it, advised for probiotic to help regular bowel 3) Percocet prescription per surgery discretion This is a summary of patient's hospitalization. Please see EMR for full detail of record. 1). Acute Cholecystitis Assessment/plan * General surgery Dr. Menendez on board help appreciated * Patient is pod 2 for lap teresa. * Clear for discharge from surgical standpoint * Take Augmentin for 7 days * Take percocet and colace as prescribed * Let steri-strips fall off on own * No heavy lifting for 4 weeks * Patient to sponge until follow up with Dr. Menendez * Keep surgical areas clean and dry * Drain will remain in place until office follow up * Follow up with Dr. Menendez within 1-2 weeks * Call Dr. Menendez regarding any issues * GI Dr. Olmos would on board help appreciated * Has signed off help appreciated * Infectious Disease: Dr Phillips on the case-->help appreciated * Abdominal ultrasound: Cholelithiasis with sludge in the gallbladder associated with gallbladder wall thickening measuring up to 4 mm as well as underlying gallbladder wall edema. Prominent common bile duct measuring up to 4.7 mm meters pancreas not well visualized. * MRCP noted for acute cholecystitis. No evidence of choledocholithiasis left lower atelectasis versus infiltrate and very small effusion. * echocardiogram (10/04/17): left ventricle systolic function is normal EF>70% no aortic regurgitation is present. Mitral regurgitation is mild. official report in the chart * Zosyn 3.375 gm IV Q6H active since 10/02- * Metronidiazole 500 mg IV [id number] since 10/01- * IV fluids 2). Hx LLL Pneumonia * See Chest CT report. This was treated as outpatient. patient completed Z-Truman prior.. * As evidence of pneumonia can persist even after effective treatment, this is NOT failure of outpatient treatment: Respiratory Exam is normal, Repeat Chest X Ray should be done in roughly 6 weeks * CT chest dense focal consolidative opacification seen in the left lower lobe measuring 7.52.3 cm with adjacent small left pleural effusion also. Prevascular lymph node measuring 1.5 cm with noted distended gallbladder with associated wall thickening * Please note left lower lobe infiltrate was seen on abdominal obstructive series on September 23 where in he completed Z-Truman as outpatient. * Duonebs PRN shortness of breathe 3). Prophylaxis * Protonix 40 mg IV 1x/day * Florastor 250 mg PO 2x/day
[2017-10-06 07:48] LABS: ALB/GLOB RATIO 1.1 (1.0-2.1); ALBUMIN 3.1 g/dL (3.5-5.0); ALT/SGPT 35 U/L (21-72); AST/SGOT 27 U/L (17-59); BLOOD UREA NITROGEN 7 mg/dL (9-20); CALCIUM 8.3 mg/dl (8.6-10.4); GFR AFRICAN-AMERICAN > 60; GFR NON-AFRICAN AMERICAN > 60
--- NOTE | 2017-10-06 07:48 | CP.PCM.PN ---
Subjective - Date & Time of Evaluation Date of Evaluation: 10/06/17 Time of Evaluation: 07:00 - Subjective Subjective: General Surgery Note for Dr. Menendez Patient seen and examined at bedside. No acute event overnight. Patient report mild pain but controlled with medication. He states that he has been psssing flatus and had BMs. He is tolerating diet. Patient states that he would like to stay until Saturday 10/07 since he has no transportation today. Objective - Vital Signs/Intake and Output Vital Signs (last 24 hours): Temp Pulse Resp BP Pulse Ox 98.3 F 65 20 114/68 96 10/06/17 00:07 10/06/17 00:07 10/06/17 00:07 10/06/17 00:07 10/06/17 00:07 Intake and Output: 10/06/17 10/06/17 06:59 18:59 Intake Total 2206 Output Total 560 Balance 1646 - Medications Medications: Current Medications Albuterol/Ipratropium (Duoneb 3 Mg/0.5 Mg (3 Ml) Ud) 3 ml INH RQ6 PRN PRN Reason: Shortness of Breath Metronidazole (Flagyl) 500 mg in 100 mls @ 100 mls/hr IVPB Q8H ALIZA PRN Reason: Protocol Last Admin: 10/06/17 04:16 Dose: 100 mls/hr Sodium Chloride (Sodium Chloride 0.9%) 1,000 mls @ 102 mls/hr IV .[id number] ALIZA Last Admin: 10/06/17 02:00 Dose: Not Given Piperacillin Sod/Tazobactam Sod (Zosyn 3.375 Gm Iv Premix) 3.375 gm in 50 mls @ 200 mls/hr IVPB Q6 ALIZA PRN Reason: Protocol Last Admin: 10/06/17 05:23 Dose: 200 mls/hr Morphine Sulfate (Morphine) 2 mg IVP Q4 PRN PRN Reason: Pain, moderate (4-7) Oxycodone/Acetaminophen (Percocet 5/325 Mg Tab) 1 tab PO Q4H PRN PRN Reason: Pain, MILD(1-3) Stop: 10/07/17 11:12 Last Admin: 10/05/17 18:35 Dose: 1 tab Pantoprazole Sodium (Protonix Ec Tab) 40 mg PO DAILY ALIZA Saccharomyces Boulardii (Florastor) 250 mg PO BID ALIZA Last Admin: 10/05/17 17:27 Dose: 250 mg - Labs Labs: 10/06/17 07:05 10/05/17 06:42 PT 12.7 SECONDS (9.7-12.2) H 10/01/17 11:12 INR 1.2 10/01/17 11:12 APTT 38 SECONDS (21-34) H 10/01/17 11:12 - Additional Findings Additional findings: - Constitutional Appears: No Acute Distress - Head Exam Head Exam: NORMOCEPHALIC - Eye Exam Eye Exam: Normal appearance - ENT Exam ENT Exam: Mucous Membranes Moist - Respiratory Exam Respiratory Exam: NORMAL BREATHING PATTERN - Cardiovascular Exam Cardiovascular Exam: +S1, +S2 - GI/Abdominal Exam GI & Abdominal Exam: Soft, Tenderness (surgical sites) Rohan drain in place with 50 cc over 24 hrs - Neurological Exam Neurological Exam: Alert, Awake, Oriented x3 - Psychiatric Exam Psychiatric exam: Normal Mood - Skin Skin Exam: Dry, Intact, Warm Assessment and Plan - Assessment and Plan (Free Text) Assessment: 36M s/p robotic partial cholecystectomy POD#2 Plan: Clear for discharge from surgical standpoint Take Augmentin for 7 days Take percocet and colace as prescribed Let steri-strips fall off on own No heavy lifting for 4 weeks Patient to sponge until follow up with Dr. Menendez Keep surgical areas clean and dry Drain will remain in place until office follow up Follow up with Dr. Menendez within 1-[address] Menendez regarding any issues Discussed with Dr. Shon Tracy PGY2
[2017-10-06 08:34] VITALS: O2SAT 97
[2017-10-06] MEDS: Saccharomyces Boulardi 250 mg Cap PO SCH ×2 (09:26→17:52)
[2017-10-06] MEDS: Oxycodone/Acetaminophen 5/325 mg Tab PO PRN (09:42)
[2017-10-06] MEDS ORDERED: Pantoprazole 40 mg EC Tab PO SCH (10:00)
--- NOTE | 2017-10-06 11:13 | RAD ---
Date of service: 10/06/2017 HISTORY: Pneumonia. COMPARISON: 10/01/2017 FINDINGS: LUNGS: Improvement without complete resolution left lower lobe infiltrate. PLEURA: No significant pleural effusion identified, no pneumothorax apparent. CARDIOVASCULAR: Normal. OSSEOUS STRUCTURES: No significant abnormalities. VISUALIZED UPPER ABDOMEN: Normal. OTHER FINDINGS: None. IMPRESSION: Improving left lower lobe pneumonia. Follow-up to resolution advised.
[2017-10-06 16:08] VITALS: BP 114/71; PULSE 62; TEMP 98
--- NOTE | 2017-10-06 19:26 | CP.PCM.PN ---
Subjective - Date & Time of Evaluation Date of Evaluation: 10/06/17 Time of Evaluation: 08:00 - Subjective Subjective: improved s/o cholecystectomy will d/c on PO antibiotics for pneumonia with follow up CXR Objective - Vital Signs/Intake and Output Vital Signs (last 24 hours): Temp Pulse Resp BP Pulse Ox 98.0 F 62 20 114/71 97 10/06/17 15:07 10/06/17 15:07 10/06/17 15:07 10/06/17 15:07 10/06/17 15:07 Intake and Output: 10/06/17 10/07/17 18:59 06:59 Intake Total 1260 Output Total 20 Balance 1240 - Medications Medications: Current Medications Albuterol/Ipratropium (Duoneb 3 Mg/0.5 Mg (3 Ml) Ud) 3 ml INH RQ6 PRN PRN Reason: Shortness of Breath Metronidazole (Flagyl) 500 mg in 100 mls @ 100 mls/hr IVPB Q8H ALIZA PRN Reason: Protocol Last Admin: 10/06/17 13:24 Dose: 100 mls/hr Sodium Chloride (Sodium Chloride 0.9%) 1,000 mls @ 102 mls/hr IV .[id number] [facility], 1928–1983 Last Admin: 10/06/17 10:17 Dose: 102 mls/hr Piperacillin Sod/Tazobactam Sod (Zosyn 3.375 Gm Iv Premix) 3.375 gm in 50 mls @ 200 mls/hr IVPB Q6 ALIZA PRN Reason: Protocol Last Admin: 10/06/17 17:52 Dose: 200 mls/hr Morphine Sulfate (Morphine) 2 mg IVP Q4 PRN PRN Reason: Pain, moderate (4-7) Oxycodone/Acetaminophen (Percocet 5/325 Mg Tab) 1 tab PO Q4H PRN PRN Reason: Pain, MILD(1-3) Stop: 10/07/17 11:12 Last Admin: 10/06/17 09:42 Dose: 1 tab Pantoprazole Sodium (Protonix Ec Tab) 40 mg PO DAILY [facility], [facility]–1983 Last Admin: 10/06/17 09:26 Dose: 40 mg Saccharomyces Boulardii (Florastor) 250 mg PO BID [facility], [facility]1983 Last Admin: 10/06/17 17:52 Dose: 250 mg - Labs Labs: 10/06/17 07:05 07/19/18 07:05 PT 12.7 SECONDS (9.7-12.2) H 10/01/17 11:12 INR 1.2 10/01/17 11:12 APTT 38 SECONDS (21-34) H 10/01/17 11:12 - Constitutional Appears: Non-toxic, Chronically Ill - Head Exam Head Exam: NORMOCEPHALIC - Eye Exam Eye Exam: PERRL - ENT Exam ENT Exam: Mucous Membranes Dry - Neck Exam Neck Exam: absent: Lymphadenopathy - Respiratory Exam Respiratory Exam: Decreased Breath Sounds - Cardiovascular Exam Cardiovascular Exam: REGULAR RHYTHM - GI/Abdominal Exam GI & Abdominal Exam: Distended - Rectal Exam Rectal Exam: Deferred Assessment and Plan (1) Cholecystitis Status: Acute (2) Pneumonia Status: Resolved - Assessment and Plan (Free Text) Assessment: mproved s/o cholecystectomy will d/c on PO antibiotics for pneumonia with follow up CXR
== END 2017-10-06 19:37 | disposition home or self-care (01) | DRG 417 ==
LOC: C.ER 06:33 → C.9E 10:51 → C.3T 11:39 → OBSVTOIN 10-03 17:25 → C.3T 10-04 17:42
PROVIDERS: ADMIT Hospitalist; ATTEND Family Medicine
PROC: 0FN44ZZ Release Gallbladder, Percutaneous Endoscopic Approach (ICD-10-PCS; 2017-10-04)
PROC: 8E0W4CZ Robotic Assisted Procedure of Trunk Region, Percutaneous Endoscopic Approach (ICD-10-PCS; 2017-10-04)
PROC: 0F9430Z Drainage of Gallbladder with Drainage Device, Percutaneous Approach (ICD-10-PCS; 2017-10-04)
PROC: 0FT44ZZ Resection of Gallbladder, Percutaneous Endoscopic Approach (ICD-10-PCS; principal; 2017-10-04 07:30)
DX: K80.12 Calculus of gallbladder with acute and chronic cholecystitis without obstruction (principal); J18.9 Pneumonia, unspecified organism; K82.8 Other specified diseases of gallbladder; F17.210 Nicotine dependence, cigarettes, uncomplicated; E83.51 Hypocalcemia; I27.20 Pulmonary hypertension, unspecified; I37.1 Nonrheumatic pulmonary valve insufficiency; I34.0 Nonrheumatic mitral (valve) insufficiency

== ENCOUNTER 2018-08-09 08:34 | Outpatient (CLI) | payer OTHER | END 2018-08-09 08:35 | disposition home or self-care (01) | LOC: C.USIC 08:34 | DX: R10.10 Upper abdominal pain, unspecified (principal) ==